=== PATIENT | female | born 1980 | race Caucasian/White ===

== ENCOUNTER → 2024-07-17 | Outpatient (CLI) | payer MEDICAID, SELFPAY ==
[2024-07-16 14:31] LABS: HCG Qualitative,Urine Negative
--- NOTE | 2024-07-17 13:15 | XR_ITS ---
Examination: MRI of brain without intravenous contrast. MRI brain with intravenous contrast. Date and time of exam:July 17, 2024 1432 hrs. Comparison August 28, 2023 Indications: Headaches beginning 2019 Indication double vision numbness and paresthesias in the extremities with balance problems Technique: Multiple axial and sagittal images of the brain to been obtained. Siemens high-resolution 1.52 Vanessa short bore scanner utilized. Sagittal sections, T1 weighted images, TR 500, TE 14, are performed. Axial sections proton-density and T2-weighted images have been obtained. Inversion recovery axial images, TR 9260, TE 111, TR 2500. Diffusion weighted images, axial sections, TR 4800, TE 128, B value 1000. Axial sections, ADC map, TR 4800, TE 128. Axial and coronal images were also obtained post 15 cc gadolinium administered intravenously. Findings:: Enlargement of the sella turcica is not present. The optic chiasm and infundibular stalk are not remarkable. There is no localized enlargement of the medulla or candice. Fourth ventricle and cerebellar tonsils appear normal in position. No subacute area of hemorrhage density is seen. Fourth ventricle is midline. Mass in the cerebellopontine angle region is not evident. 7th and 8th nerve complexes exhibit symmetry Globes are symmetrical Orbital musculature including medial lateral rectus muscles do not exhibit abnormality Increased white matter signal is again noted, scattered punctate foci increased signal in the white matter Effacement of the cortical sulcal markings is not identified. Mass effect upon the ventricular system is not identified. Diffusion-weighted images demonstrate no focus of restricted diffusion Contrast images demonstrate no abnormal enhancement Impression: No significant change in scattered punctate foci increased signal in the cerebral white matter, demyelinating disease
== END | disposition home or self-care (01) ==
LOC: SMRI 12:48
PROVIDERS: PCP Physician Assistant; Referring Provider Physician Assistant; Visit Provider Physician Assistant
DX: G37.9 Demyelinating disease of central nervous system, unspecified (principal); Z32.00 Encounter for pregnancy test, result unknown
CPT/HCPCS: 70553; 81025; A9579

== ENCOUNTER → 2025-02-22 | Outpatient (CLI) | payer MEDICAID, SELFPAY ==
[2025-02-22 16:32] LABS: HCG Qualitative,Urine Negative
--- NOTE | 2025-02-22 16:45 | XR_ITS ---
Examination: MRI of brain without intravenous contrast. MRI brain with intravenous contrast. Date and time of exam:February 22, 2025 1728 hours, comparison July 17, 2024 INDICATIONS: Blurred vision headaches beginning May 2020 numbness in the hands Technique: Multiple axial and sagittal images of the brain to been obtained. Siemens high-resolution 1.52 Vanessa short bore scanner utilized. Sagittal sections, T1 weighted images, TR 500, TE 14, are performed. Axial sections proton-density and T2-weighted images have been obtained. Inversion recovery axial images, TR 9260, TE 111, TR 2500. Diffusion weighted images, axial sections, TR 4800, TE 128, B value 1000. Axial sections, ADC map, TR 4800, TE 128. Axial and coronal images were also obtained post 16 cc gadolinium administered intravenously. Findings:: Enlargement of the sella turcica is not present. The optic chiasm and infundibular stalk are not remarkable. There is no localized enlargement of the medulla or candice. Fourth ventricle and cerebellar tonsils appear normal in position. No subacute area of hemorrhage density is seen. Fourth ventricle is midline. Mass in the cerebellopontine angle region is not evident. 7th and 8th nerve complexes exhibit symmetry Globes are symmetrical Orbital musculature including medial lateral rectus muscles do not exhibit abnormality Increased white matter signal is again noted is, scattered punctate foci increased signal in the white matter Effacement of the cortical sulcal markings is not identified. Mass effect upon the ventricular system is not identified. Diffusion-weighted images demonstrate no focus of restricted diffusion. Contrast images demonstrate no abnormal enhancement Impression: Negative for acute hemorrhage mass effect or midline shift No acute infarct Scattered punctate foci increased signal in the white matter again noted, demyelinating disease pattern
== END | disposition home or self-care (01) ==
PROVIDERS: PCP Physician Assistant
DX: R90.82 White matter disease, unspecified (principal); Z32.00 Encounter for pregnancy test, result unknown
CPT/HCPCS: 70553; 81025; A9577

== ENCOUNTER → 2025-03-30 | Outpatient (CLI) | payer MEDICAID, SELFPAY ==
--- NOTE | 2025-03-30 | XR_ITS ---
Examination: MRI right ankle without contrast Date and time of exam: March 30, 2025, 0821 hours INDICATIONS: Right ankle swelling and pain numbness beginning 2 years ago after twisting fall Technique: Multiple MRI axial and sagittal sections lumbar spine. Sagittal T2-weighted images, TR 3500, TE 118 T1 weighted transverse sections, TR 688 T8.5, T2-weighted sagittal sections T1 weighted sagittal sections TR 621, TE 30 T2 axial sections, TR 4, 190, TE 84. 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
== END | disposition home or self-care (01) ==
PROVIDERS: PCP Physician Assistant; Referring Provider Internal Medicine Rheumatology; Visit Provider Internal Medicine Rheumatology
DX: S93.491A Sprain of other ligament of right ankle, initial encounter (principal); W19.XXXA Unspecified fall, initial encounter; M76.821 Posterior tibial tendinitis, right leg
CPT/HCPCS: 73721

== ENCOUNTER 2025-06-16 00:05 | Inpatient (IN) | payer MEDICAID, SELFPAY ==
[2025-06-16] VITALS (13 sets, daily range): BP systolic 91–134; BP diastolic 60–98; PULSE 88–159; RESP 12–22; TEMP 36.2–37.3; O2SAT 97–100; BMI 30.9; BMI 31.5
--- NOTE | 2025-06-16 00:14 | XR_ITS ---
Examination: Abdomen sonogram, Limited Date and time of exam: June 16, 2025, 0216 hours INDICATIONS: Right upper abdominal pain beginning today Technique: Real-time keller scale transabdominal sonographic images of the upper abdomen obtained. Findings: Absent gallbladder Common bile duct 0.67 cm no stones Pancreas obscured by bowel gas Liver 13.3 cm no liver lesions Normal hepatopetal portal venous flow Patent IVC IMPRESSION: Absent gallbladder No common bile duct stones noted
--- NOTE | 2025-06-16 00:15 | XR_ITS ---
Examination: CT abdomen with intravenous contrast CT pelvis with intravenous contrast 2-D coronal reconstructions 2-D sagittal reconstructions Date and time of exam: June 16, 2025, 0241 hours, comparison January 15, 2023 INDICATIONS: Severe right flank and abdominal pain beginning 2 days ago. CTDI: vol (mGy) 9.93 DLP: (mGycm) 550 Technique: Multiple axial sections of the abdomen and pelvis have been obtained. 64 slice high-resolution scanner used. 3 mm axial sections have been obtained, post intravenous injection 60 cc [id number] 2-D sagittal, coronal reconstructions obtained. Low dose protocols were performed. One or more of the following dose reduction techniques were used; automated exposure control, adjustment of the mA and/or KV according to patient size, use of iterative reconstruction technique. Findings: No visualized liver or splenic lesion Absent gallbladder No pancreatic or adrenal mass No renal or ureteral calculi, no hydronephrosis Retrocecal inflamed enlarged appendix No pelvic abscess 22 mm right adnexal follicle Bladder intact IMPRESSION: Acute appendicitis
--- NOTE | 2025-06-16 00:17 | EKG_ITS ---
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
--- NOTE | 2025-06-16 00:18 | PD.EDABDPN ---
ED Abdominal Pain RME/HPI General Chief Complaint: Abdominal Pain Stated complaint: RIGHT FLANK PAIN Time seen by provider: 06/16/25 00:16 Arrival date/time: 06/16/25 00:05 RME / HPI RME / HPI narrative: See MDM for Dr. Lazo's HPI Documentation. Related Data Home Medications ?Medication ?Instructions ?Recorded ?Confirmed albuterol sulfate 90 mcg/actuation 1 inh inhalation QID PRN Wheezing 11/24/20 06/17/25 aerosol inhaler atorvastatin 20 mg tablet 20 mg PO QDAY 11/24/20 06/17/25 montelukast 10 mg tablet 10 mg PO QDAY 11/24/20 06/17/25 albuterol sulfate 2.5 mg/3 mL 2.5 mg inhalation PRN PRN Wheezing 02/20/21 06/17/25 (0.083 %) solution for nebulization aspirin 81 mg tablet 81 mg PO QDAY 02/21/21 06/17/25 amitriptyline 100 mg tablet 100 mg PO DAILY Anxiety/pain 06/16/25 06/16/25 baclofen 10 mg tablet 10 mg PO Q12H Muscle spasms 06/16/25 06/17/25 cetirizine 10 mg capsule 10 mg PO DAILY Allergies 06/16/25 06/17/25 hydroxyzine HCl 25 mg tablet 25 mg PO TID PRN Anxiety 06/16/25 06/17/25 levetiracetam 750 mg 1,500 mg PO DAILY Seizures 06/16/25 06/16/25 tablet,extended release 24 hr levothyroxine 75 mcg tablet 75 mcg PO DAILY 06/16/25 06/17/25 Allergies Allergy/AdvReac Type Severity Reaction Status Date / Time chlorpheniramine (From Allergy Hives Verified 06/16/25 00:06 Ornade) phenylpropanolamine (From Allergy Hives Verified 06/16/25 00:06 Ornade) sulfamethoxazole (From Allergy Hives Verified 06/16/25 00:06 Bactrim) trimethoprim (From Bactrim) Allergy Hives Verified 06/16/25 00:06 Review of Systems Review of Systems Systems Reviewed: All systems reviewed, normal except as documented Past Medical History Past Medical History NEUROLOGIC: Positive Epilepsy ( A CHILD NO MED) and Migraine (TAKES RX) CARDIAC: Positive Cardiac Disorders and Hypertension (TAKES MED) RESPIRATORY: Positive Asthma (HAS INHALER) MUSCULOSKELETAL: Positive Musculoskeletal Disorders and Fractures (toe) PSYCHO/SOCIAL: Positive Depression (diagnosed 01/17/2021 , no meds) and Anxiety (diagnosed 01/17/2021 , no meds) OTHER HISTORY: Positive Falls (11/10 FOR THIS PROC) and Chicken Pox Family History FAMILY HISTORY: Positive Family Cardiac Disorders (MOTHER,FATHER (HTN)), Family Cancer (MOTHER (SKIN)), Family Surgery (MOTHER,BROTHER) and Family Anesthesia Reaction (MOTHER (SEIZURES)) Surgical History SURGICAL: Positive Tonsillectomy Social History SMOKING STATUS: Never smoker ED Exam Narrative Physical exam: See [facility] for Dr. Lazo's Physical Exam Documentation. Course Quality Measures none Orders Category Date Time Status Admit to Inpatient Status Routine Admission 06/17/25 23:[address] in Observation Status Routine Admission 06/16/25 03:50 Active Bed to Chair in A.M. Routine Care 06/16/25 11:13 Ordered COVID-19 Screening Questionnaire NOW Care 06/16/25 03:[address] Screening NOW Care 06/16/25 00:15 Completed Decision to Admit X1 Care 06/16/25 03:48 Completed Ice Chips NEEDED Care 06/16/25 11:13 Completed Incentive Spirometry Treatment .q2h w/a Care 06/16/25 11:13 Completed Intake and Output Routine Care 06/16/25 11:13 Ordered NPO NOW Care 06/16/25 03:47 Completed NPO NOW Care 06/16/25 03:53 Completed Saline [Insert IV] NOW Care 06/16/25 00:13 Completed Sequential Compression Device NOW Care 06/16/25 11:13 Completed Straight [In and Out Catheter] X1 Care 06/16/25 00:13 Completed Consult to General Surgery Stat Cons 06/16/25 03:47 Ordered Diet Clear Liquid Diet 06/16/25 Lunch Completed Diet Full Liquid Diet 06/17/25 Lunch Active Diet NPO (NOW) Diet 06/16/25 03:47 Completed Diet NPO (NOW) Diet 06/16/25 03:[address] abdomen pelvis w con Stat Exams 06/16/25 00:15 Completed EKG (ED Only) Stat Exams 06/16/25 00:17 Draft US abdomen limited Stat Exams 06/16/25 00:14 Completed XR abdomen series w chest 1V Stat Exams 06/16/25 17:05 Completed Amylase Stat Lab 06/16/25 00:35 Completed Bilirubin,Direct Stat Lab 06/16/25 00:35 Completed Blood Culture (Lab) Stat Lab 06/16/25 01:36 Results CBC AM DRAW Lab 06/17/25 05:00 Completed CBC AM DRAW Lab 06/18/25 04:25 Completed CBC Stat Lab 06/16/25 00:35 Completed CBC Stat Lab 06/16/25 17:20 Completed CMP [Comprehensive Metabolic Panel] Stat Lab 06/16/25 00:35 Completed CRP [C-Reactive Protein] Stat Lab 06/16/25 01:36 Completed ESR [Sed Rate (ESR)] Stat Lab 06/16/25 01:36 Completed Electrolytes AM DRAW Lab 06/17/25 05:00 Completed Free T4 (Free Thyroxine) AM DRAW Lab 06/17/25 05:00 Completed HCG,Qualitative Serum Stat Lab 06/16/25 00:35 Completed Hemoglobin A1C [Glycohemoglobin w (eAG)] Stat Lab 06/16/25 00:35 Completed Hemoglobin and Hematocrit Routine Lab 06/17/25 11:51 Completed Lactate (Lactic Acid) Stat Lab 06/16/25 01:36 Completed Lipase Stat Lab 06/16/25 00:35 Completed Magnesium Stat Lab 06/16/25 00:35 Completed Procalcitonin Stat Lab 06/16/25 01:36 Completed TSH [Thyroid Stimulating Hormone] Stat Lab 06/16/25 00:35 Completed UA, C/S IF [Urinalysis, C/S if Indicated] Stat Lab 06/16/25 02:30 Completed Acetaminophen Ivpb [Ofirmev Inj] 100 ml Med 06/16/25 07:59 Discontinued IV .STK-MED Acetaminophen Tab [Tylenol Tab] Med 06/16/25 11:13 Discontinued 650 mg PO Q6HR PRN Amitriptyline HCl [Elavil] Med 06/17/25 09:00 Discontinued 100 mg PO DAILY Baclofen [Lioresal] Med 06/16/25 18:45 Discontinued 10 mg PO Q12H Bupivacaine Mpf/Epi 0.5% [Sensorcaine-Mpf Inj 0.5% w/ Med 06/16/25 07:29 Discontinued Epi] 30 ml .ROUTE .STK-MED ONE Esmolol HCl [Brevibloc Inj] Med 06/16/25 08:15 Discontinued 100 mg .ROUTE .STK-MED ONE Gabapentin Med 06/17/25 09:30 Discontinued 200 mg PO TID HYDROmorphone INJ [Dilaudid Inj] Med 06/16/25 08:14 Discontinued 0.4 mg IVP Q5M PRN HYDROmorphone INJ [Dilaudid Inj] Med 06/16/25 17:08 Discontinued 1 mg IVP X1 ONE HYDROmorphone INJ [Dilaudid Inj] Med 06/17/25 18:33 Discontinued 1 mg IVP X1 ONE HYDROmorphone INJ [Dilaudid Inj] Med 06/17/25 18:34 Discontinued 1 mg IVP X1 ONE HYDROmorphone INJ [Dilaudid Inj] Med 06/16/25 00:13 Discontinued 2 mg IVP X1 ONE Ketorolac Inj [Toradol Inj] Med 06/16/25 16:42 Discontinued 30 mg IVP Q6HR PRN Ketorolac Inj [Toradol Inj] Med 06/16/25 00:13 Discontinued 30 mg IVP X1 ONE LORazepam [Ativan Inj] Med 06/16/25 17:38 Discontinued 1 mg IVP X1 ONE LORazepam [Ativan Inj] Med 06/17/25 08:56 Discontinued 1 mg IVP X1 ONE LORazepam [Ativan Inj] Med 06/16/25 01:23 Discontinued 2 mg IVP X1 ONE Levothyroxine Sodium [Synthroid] Med 06/17/25 06:00 Discontinued 75 mcg PO ACBR Midazolam Inj [Versed Inj] Med 06/16/25 07:58 Discontinued 2 mg .ROUTE .STK-MED ONE Morphine* Inj Med 06/16/25 08:14 Discontinued 3 mg IV Q5M PRN Morphine* Inj Med 06/16/25 03:52 Discontinued 4 mg IVP Q4HR PRN Morphine* Inj Med 06/17/25 08:38 Discontinued 4 mg IVP Q4HR PRN Ondansetron Inj [Zofran Inj] Med 06/16/25 03:52 Discontinued 4 mg IVP Q4H PRN Ondansetron Inj [Zofran Inj] Med 06/16/25 00:13 Discontinued 4 mg IVP X1 ONE Ondansetron Inj [Zofran Inj] Med 06/16/25 08:14 Discontinued 4 mg IVP X1 ONE Pantoprazole Inj [Protonix Inj] Med 06/17/25 18:45 Discontinued 40 mg IVP QDAY Piper/Tazo 3.375 gm Premix [Zosyn] Med 06/16/25 11:13 Discontinued 3.375 gm in 50 ml IV Q8HR Potassium Chloride [K-Dur] Med 06/17/25 07:48 Discontinued 40 meq PO X1 ONE Propofol Inj [Diprivan Inj] Med 06/16/25 07:58 Discontinued 200 mg IV .STK-MED ONE Ringers Lactated 1000 ml [Lactated Ringers] 1,000 ml Med 06/16/25 01:25 Discontinued IV 1,000 mls/hr Sodium Chloride 0.9% 1000 ml [Ns] 1,000 ml Med 06/16/25 00:13 Discontinued IV 999 mls/hr Sodium Chloride 0.9% 1000 ml [Ns] 1,000 ml Med 06/16/25 03:53 Discontinued IV Q10H Sodium Chloride 0.9% 1000 ml [Ns] 1,000 ml Med 06/17/25 20:00 Discontinued IV Q10H Sugammadex Inj [Bridion Inj] Med 06/16/25 07:59 Discontinued 200 mg .ROUTE .STK-MED ONE cefTRIAXone/D5w 1gm IV premix [Rocephin/D5w 1gm IV Med 06/16/25 03:38 Discontinued premix] 1 gm in 50 ml IV X1 fentaNYL INJ [Sublimaze Inj] Med 06/16/25 07:58 Discontinued 100 mcg .ROUTE .STK-MED ONE fentaNYL INJ [Sublimaze Inj] Med 06/16/25 08:14 Discontinued 25 mcg IVP Q5M PRN hydrOXYzine HCL [Atarax] Med 06/16/25 18:32 Discontinued 25 mg PO QID PRN LANEY Agitation levetiracetam Med 06/17/25 09:00 Discontinued DOSE mg PO DAILY metroNIDAZOLE/NS 500 MG IVPB [Flagyl 500 mg IV] Med 06/16/25 03:38 Discontinued 500 mg in 100 ml IV X1 Code Status Routine Oth 06/16/25 03:52 Completed Oxygen Delivery PRN RT 06/16/25 08:14 Completed Transfer Order Routine Transfer 06/16/25 09:45 Completed Vital Signs Vital signs: Vital Signs Temperature 98.3 F 06/16/25 00:15 Pulse Rate 159 H 06/16/25 00:15 Respiratory Rate 20 06/16/25 00:15 Blood Pressure 101/62 06/16/25 00:15 Pulse Oximetry (%) 98 06/16/25 00:15 Oxygen Delivery Method Room Air 06/16/25 00:15 Abdominal Pain MDM MDM Narrative MDM Narrative:: This section includes all my notes and documentations, including HPI, PE, and ED course. Sharath Lazo MD HPI: 44 y/o female with Hx of HTN and Anxiety presents with right-sided abdominal pain for about 24 hours. No other complaints. ROS: All negative except as documented in HPI. Physical Exam: General: Alert and oriented. In obvious pain. Eyes: Conjunctivae and lids clear. ENT: No nasal congestion. Neck: Supple. Heart: Tachycardia with regular rhythm. Lungs: No respiratory distress. Good air movement. No rhonchi, wheezing, rales. Abdomen: Soft with RLQ tenderness. Normal bowel sounds. No distension. No rebound or guarding. Back: No CVA tenderness. Skin: Warm and dry. Neuro: Alert and oriented X 3. I reviewed all diagnostic test results: My interpretation of the EKG is: Sinus tachycardia (126 bpm) with nonspecific ST-T changes. My review of the abdominal US report is NAD. My review of the Abdomen/Pelvis CT report is appendicitis. Blood/urine tests remarkable for WBC 20. At this point, diagnoses include: Acute Appendicitis Treatment here included: IVF Zofran 4 mg IV Toradol 30 mg IV Dilaudid 2 mg IV No significant improvement noted Ativan 2 mg IV Significant improvement noted Rocephin 1 G IV Flagyl 500 mg IV I discussed the case with Dr. Nichole. About the presentation and exam and diagnostics and treatments here. And need of further care in the hospital. Will accept the patient. Sharath Lazo MD Patient data External records reviewed:: [facility] previous records (No prior ED records available for review.) Clinical information provided by:: patient Social determinants that could affect healthcare access:: none Patient has the following chronic illnesses:: Epilepsy, Migraine, Hypertension, Asthma, Depression, and Anxiety How is presenting disease/condition affected by chronic disease/condition?: exacerbated by Evaluation data The following diagnostics were reviewed and interpreted by me:: EKG tracing(s) (My interpretation of the EKG is: Sinus tachycardia (126 bpm) with nonspecific ST-T changes. Sharath Lazo MD) Lab and/or radiology exams considered but not ordered:: None Interpretation Summary: I reviewed all diagnostic test results: My interpretation of the EKG is: Sinus tachycardia (126 bpm) with nonspecific ST-T changes. My review of the abdominal US report is NAD. My review of the Abdomen/Pelvis CT report is appendicitis. Blood/urine tests remarkable for WBC 20. Medications / Prescriptions Medications or Prescriptions considered but not ordered:: None Medication administrations:: Medication Administration History Discontinued Medications Acetaminophen (Acetaminophen 325 Mg Tablet) 650 mg PO Q6HR PRN PRN Reason: [id number] Stop: 07/16/25 11:12 Amitriptyline HCl (Amitriptyline Hcl 25 Mg Tablet) 100 mg PO DAILY [facility] Stop: 07/17/25 08:59 Last Admin: 06/19/25 10:31 Dose: 100 mg Documented By: Admin: 06/18/25 10:15 Dose: Not Given Documented By: KAEL Non-Admin Reason: pt unable to tolerate, vomiting Admin: 06/17/25 08:30 Dose: 100 mg Documented By: MIKEY Baclofen (Baclofen 10 Mg Tablet) 10 mg PO Q12H [facility] Stop: 07/16/25 18:44 Last Admin: 06/19/25 05:49 Dose: Not Given Documented By: VICKY Non-Admin Reason: Patient Refused Admin: 06/18/25 17:57 Dose: Not Given Documented By: KAEL Non-Admin Reason: Patient Refused Admin: 06/18/25 06:03 Dose: 10 mg Documented By: Admin: 06/17/25 17:49 Dose: 10 mg Documented By: Admin: 06/17/25 05:45 Dose: 10 mg Documented By: Admin: 06/16/25 19:24 Dose: 10 mg Documented By: OLEKSANDR Bupivacaine HCl/Epinephrine Bitart (Bupivacaine Mpf/Epi 0.5% 30 Ml Vial 1:200,000) Confirm Administered Dose 30 ml .ROUTE .STK-MED ONE Stop: 06/16/25 07:30 Levetiracetam Er 750 (Mg) 0 ea PO BID [facility] Stop: 07/18/25 08:59 Last Admin: 06/19/25 10:31 Dose: 1 tablet Documented By: Admin: 06/18/25 20:06 Dose: Not Given Documented By: VICKY Non-Admin Reason: Patient Refused Admin: 06/18/25 10:14 Dose: Not Given Documented By: KAEL Non-Admin Reason: pt unable to tolerate, vomiting Esmolol HCl (Esmolol Inj 10 Mg/Ml Vial 10 Ml) Confirm Administered Dose 100 mg .ROUTE .STK-MED ONE Stop: 06/16/25 08:16 Fentanyl Citrate (Fentanyl Cit Inj 50 Mcg/Ml Amp 2ml) Confirm Administered Dose 100 mcg .ROUTE .STK-MED ONE Stop: 06/16/25 07:59 Fentanyl Citrate (Fentanyl Cit Inj 50 Mcg/Ml Amp 2ml) 25 mcg IVP Q5M PRN PRN Reason: PAIN SCALE 1-3 (mild Stop: 06/16/25 10:15 Gabapentin (Gabapentin 100 Mg Capsule) 200 mg PO TID [facility] Stop: 07/17/25 09:29 Last Admin: 06/19/25 05:49 Dose: 200 mg Documented By: Admin: 06/18/25 21:12 Dose: Not Given Documented By: VICKY Non-Admin Reason: Patient Refused Admin: 06/18/25 15:22 Dose: 200 mg Documented By: Admin: 06/18/25 06:03 Dose: 200 mg Documented By: Admin: 06/17/25 21:31 Dose: 200 mg Documented By: Admin: 06/17/25 13:40 Dose: 200 mg Documented By: Admin: 06/17/25 11:18 Dose: 200 mg Documented By: MIKEY Hydromorphone HCl (Hydromorphone Inj 2 Mg/Ml Vial) 2 mg IVP X1 ONE Stop: 06/16/25 00:14 Last Admin: 06/16/25 00:39 Dose: 2 mg Documented By: NATASHA Hydromorphone HCl (Hydromorphone Inj 2 Mg/Ml Vial) 0.4 mg IVP Q5M PRN PRN Reason: PAIN SCALE 7-10 (Severe Stop: 06/16/25 10:15 Last Admin: 06/16/25 10:39 Dose: 0.4 mg Documented By: NISHANT Comments: Admin: 06/16/25 10:23 Dose: 0.4 mg Documented By: NISHANT Hydromorphone HCl (Hydromorphone Inj 2 Mg/Ml Vial) 1 mg IVP X1 ONE Stop: 06/16/25 17:09 Last Admin: 06/16/25 17:22 Dose: 1 mg Documented By: MIKEY Hydromorphone HCl (Hydromorphone Inj 2 Mg/Ml Vial) 1 mg IVP X1 ONE Stop: 06/17/25 18:35 Last Admin: 06/17/25 18:42 Dose: 1 mg Documented By: MIKEY Hydromorphone HCl (Hydromorphone Inj 2 Mg/Ml Vial) 1 mg IVP X1 ONE Stop: 06/17/25 18:34 Last Admin: 06/17/25 18:41 Dose: Not Given Documented By: MIKEY Non-Admin Reason: Duplicate Medication on eMAR Hydroxyzine HCl (Hydroxyzine Hcl 25 Mg Tablet) 25 mg PO QID PRN PRN Reason: AGITATION Stop: 07/16/25 20:59 Last Admin: 06/17/25 08:36 Dose: 25 mg Documented By: MIKEY Sodium Chloride (Ns) 1,000 mls @ 999 mls/hr IV .Q1H1M ONE Stop: 06/16/25 01:13 Last Infusion: 06/16/25 01:44 Dose: Infused Documented By: Admin: 06/16/25 00:43 Dose: 999 mls/hr Documented By: NATASHA Lactated Ringer's (Lactated Ringers) 1,000 mls @ 1,000 mls/hr IV .Q1H ONE Stop: 06/16/25 02:24 Last Admin: 06/16/25 01:43 Dose: 1,000 mls/hr Documented By: CONSTANCE Ceftriaxone Sodium/Dextrose (Rocephin/D5w 1gm Iv Premix) 1 gm in 50 mls @ 100 mls/hr IV X1 ONE Stop: 06/16/25 04:07 Last Admin: 06/16/25 04:51 Dose: 100 mls/hr Documented By: NATASHA Metronidazole (Flagyl 500 Mg Iv) 500 mg in 100 mls @ 100 mls/hr IV X1 ONE Stop: 06/16/25 04:37 Last Admin: 06/16/25 03:56 Dose: 100 mls/hr Documented By: AU Sodium Chloride (Ns) 1,000 mls @ 100 mls/hr IV Q10H [facility] Stop: 07/16/25 03:52 Last Admin: 06/17/25 20:14 Dose: Not Given Documented By: CV Non-Admin Reason: Discontinued Admin: 06/17/25 08:37 Dose: 100 mls/hr Documented By: Infusion: 06/17/25 07:00 Dose: Infused Documented By: Admin: 06/16/25 21:00 Dose: 100 mls/hr Documented By: Infusion: 06/16/25 14:46 Dose: Infused Documented By: Admin: 06/16/25 12:51 Dose: Not Given Documented By: SG Non-Admin Reason: Wrong Time Admin: 06/16/25 04:46 Dose: 100 mls/hr Documented By: NATASHA Acetaminophen (Ofirmev Inj) Confirm Administered Dose 100 mls @ ud IV .STK-MED ONE Stop: 06/16/25 08:00 Piperacillin/Tazobactam/Dextrose (Zosyn) 3.375 gm in 50 mls @ 100 mls/hr IV Q8HR [facility]; Protocol Stop: 06/23/25 11:12 Last Admin: 06/19/25 05:46 Dose: 100 mls/hr Documented By: Infusion: 06/18/25 21:46 Dose: Infused Documented By: Admin: 06/18/25 21:16 Dose: 100 mls/hr Documented By: Infusion: 06/18/25 15:52 Dose: Infused Documented By: Admin: 06/18/25 15:22 Dose: 100 mls/hr Documented By: Infusion: 06/18/25 06:33 Dose: Infused Documented By: Admin: 06/18/25 06:03 Dose: 100 mls/hr Documented By: Infusion: 06/17/25 22:01 Dose: Infused Documented By: Admin: 06/17/25 21:31 Dose: 100 mls/hr Documented By: Infusion: 06/17/25 14:09 Dose: Infused Documented By: Admin: 06/17/25 13:39 Dose: 100 mls/hr Documented By: Infusion: 06/17/25 06:14 Dose: Infused Documented By: Admin: 06/17/25 05:44 Dose: 100 mls/hr Documented By: Infusion: 06/16/25 21:35 Dose: Infused Documented By: Admin: 06/16/25 21:05 Dose: 100 mls/hr Documented By: Admin: 06/16/25 17:38 Dose: Not Given Documented By: MIKEY Non-Admin Reason: Duplicate. Held per Dr Hernandez Infusion: 06/16/25 13:03 Dose: Infused Documented By: Admin: 06/16/25 12:33 Dose: 100 mls/hr Documented By: RIRI Sodium Chloride (Ns) 1,000 mls @ 50 mls/hr IV Q10H [facility] Stop: 07/17/25 19:59 Last Admin: 06/18/25 17:48 Dose: 50 mls/hr Documented By: Infusion: 06/18/25 17:48 Dose: Infused Documented By: Admin: 06/18/25 06:19 Dose: 50 mls/hr Documented By: Admin: 06/17/25 20:16 Dose: Not Given Documented By: CV Non-Admin Reason: onging fluid, dec rate Acetaminophen (Ofirmev Inj) 1,000 mg in 100 mls @ 250 mls/hr IV X1 ONE Stop: 06/19/25 10:25 Last Admin: 06/19/25 10:30 Dose: 250 mls/hr Documented By: SEAN Ketorolac Tromethamine (Ketorolac Inj 30 Mg/Ml Vial) 30 mg IVP X1 ONE Stop: 06/16/25 00:14 Last Admin: 06/16/25 00:39 Dose: 30 mg Documented By: NATASHA Ketorolac Tromethamine (Ketorolac Inj 30 Mg/Ml Vial) 30 mg IVP Q6HR PRN PRN Reason: PAIN SCALE 4-6 (Moderate Stop: 06/21/25 16:41 Last Admin: 06/18/25 17:47 Dose: 30 mg Documented By: Admin: 06/18/25 06:02 Dose: 30 mg Documented By: Admin: 06/17/25 20:04 Dose: 30 mg Documented By: Admin: 06/17/25 13:41 Dose: 30 mg Documented By: Admin: 06/16/25 16:51 Dose: 30 mg Documented By: MIKEY Levothyroxine Sodium (Levothyroxine Sodium 25 Mcg Tablet) 75 mcg PO ACBR [facility] Stop: 07/17/25 05:59 Last Admin: 06/19/25 05:49 Dose: Not Given Documented By: VICKY Non-Admin Reason: Patient Refused Admin: 06/18/25 06:03 Dose: 75 mcg Documented By: Admin: 06/17/25 05:44 Dose: 75 mcg Documented By: TAI Lorazepam (Lorazepam 2 Mg/Ml Vial) 2 mg IVP X1 ONE Stop: 06/16/25 01:24 Last Admin: 06/16/25 01:39 Dose: 2 mg Documented By: CONSTANCE Lorazepam (Lorazepam 2 Mg/Ml Vial) 1 mg IVP X1 ONE Stop: 06/16/25 17:39 Last Admin: 06/16/25 17:53 Dose: 1 mg Documented By: MIKEY Lorazepam (Lorazepam 2 Mg/Ml Vial) 1 mg IVP X1 ONE Stop: 06/17/25 08:57 Last Admin: 06/17/25 09:09 Dose: 1 mg Documented By: MIKEY Metoclopramide HCl (Metoclopramide Inj 5 Mg/Ml Vial 2 Ml) 10 mg IVP X1 ONE; Protocol Stop: 06/18/25 08:59 Last Admin: 06/18/25 10:11 Dose: 10 mg Documented By: KAEL Midazolam HCl (Midazolam Inj 1 Mg/Ml Vial 2 Ml) Confirm Administered Dose 2 mg .ROUTE .STK-MED ONE Stop: 06/16/25 07:59 Morphine Sulfate (Morphine Sulf Inj 4 Mg/Ml Vial) 4 mg IVP Q4HR PRN PRN Reason: PAIN SCALE 4-10(Mod-Sev Stop: 06/21/25 03:51 Last Admin: 06/17/25 08:30 Dose: 4 mg Documented By: Admin: 06/16/25 22:18 Dose: 4 mg Documented By: Admin: 06/16/25 15:59 Dose: 4 mg Documented By: Admin: 06/16/25 05:35 Dose: 4 mg Documented By: MARCELLA Morphine Sulfate (Morphine Sulf Inj 4 Mg/Ml Vial) 3 mg IV Q5M PRN PRN Reason: PAIN SCALE 4-6 (Moderate Stop: 06/16/25 10:15 Morphine Sulfate (Morphine Sulf Inj 4 Mg/Ml Vial) 4 mg IVP Q4HR PRN PRN Reason: PAIN SCALE 7-10(Mod-Sev Stop: 06/21/25 03:51 Last Admin: 06/18/25 08:28 Dose: 4 mg Documented By: KAEL Morphine Sulfate (Morphine Sulf Inj 4 Mg/Ml Vial) 2 mg IVP X1 ONE Stop: 06/18/25 08:58 Last Admin: 06/18/25 10:11 Dose: 2 mg Documented By: KAEL Non-Formulary Medication (Levetiracetam) mg PO DAILY [facility] Stop: 07/17/25 08:59 Non-Formulary Medication (Levetiracetam) 1,500 mg PO DAILY [facility] Stop: 07/18/25 08:59 Ondansetron HCl (Ondansetron Inj 2 Mg/Ml Inj 2 Ml) 4 mg IVP X1 ONE; Protocol Stop: 06/16/25 00:14 Last Admin: 06/16/25 00:39 Dose: 4 mg Documented By: NATASHA Ondansetron HCl (Ondansetron Inj 2 Mg/Ml Inj 2 Ml) 4 mg IVP Q4H PRN; Protocol PRN Reason: NAUSEA OR VOMITING Stop: 07/16/25 03:51 Last Admin: 06/18/25 17:47 Dose: 4 mg Documented By: Admin: 06/18/25 08:28 Dose: 4 mg Documented By: Admin: 06/17/25 20:05 Dose: 4 mg Documented By: Admin: 06/16/25 16:46 Dose: 4 mg Documented By: Admin: 06/16/25 12:37 Dose: 4 mg Documented By: RIRI Ondansetron HCl (Ondansetron Inj 2 Mg/Ml Inj 2 Ml) 4 mg IVP X1 ONE Stop: 06/16/25 08:15 Last Admin: 06/16/25 10:49 Dose: 4 mg Documented By: NISHANT Pantoprazole Sodium (Pantoprazole Inj 40 Mg Vial) 40 mg IVP QDAY [facility] Stop: 07/17/25 18:44 Last Admin: 06/19/25 10:30 Dose: 40 mg Documented By: Admin: 06/18/25 08:28 Dose: 40 mg Documented By: Admin: 06/17/25 18:42 Dose: 40 mg Documented By: MIKEY Potassium Chloride (Potassium Chloride 20 Meq Tabcr) 40 meq PO X1 ONE Stop: 06/17/25 07:49 Last Admin: 06/17/25 08:36 Dose: 40 meq Documented By: [email or web address] Propofol (Propofol Inj 10 Mg/Ml Vial 20 Ml) Confirm Administered Dose 200 mg IV .STK-MED ONE Stop: 06/16/25 07:59 Sugammadex Sodium (Sugammadex Inj 100 Mg/Ml 2ml Vial) Confirm Administered Dose 200 mg .ROUTE .STK-MED ONE Stop: 06/16/25 08:00 Treatment here included: IVF Zofran 4 mg IV Toradol 30 mg IV Dilaudid 2 mg IV No significant improvement noted Ativan 2 mg IV Significant improvement noted Rocephin 1 G IV Flagyl 500 mg IV Consultations Consultation(s) initiated? (list below): Yes Consultation #1 (Physician, Specialty, Details): I discussed the case with Dr. Nichole. About the presentation and exam and diagnostics and treatments here. And need of further care in the hospital. Will accept the patient. Time: 03:44 Diagnosis Differential diagnosis abdominal pain: acute appendicitis, calculus of kidney, constipation, diverticulitis, gastroenteritis, pancreatitis and small bowel obstruction Most likely diagnosis given after review of the tests above:: Acute Appendicitis Admission Indicated Admission indicated?: indicated Explain why admission is indicated or not indicated:: Acute Appendicitis Admission Request Was there a request for admission?: Yes Admission Attestation Admission request attestation: I discussed the case with Dr. Nichole. About the presentation and exam and diagnostics and treatments here. And need of further care in the hospital. Will accept the patient. Disposition Plan Disposition Plan: Admit Discharge Plan Plan Patient Disposition: Admit Acute Care w/in Hospital Problem List Clinical Impression: Acute appendicitis
[2025-06-16] MEDS: KETOROLAC INJ 30 MG/ML VIAL IVP ×2 (00:39→16:51)
[2025-06-16] MEDS: ONDANSETRON INJ 2 MG/ML INJ 2 ML 4 MG IVP ×4 (00:39→16:46)
[2025-06-16] MEDS: HYDROmorphone INJ 2 MG/ML VIAL IVP (00:39)
[2025-06-16] MEDS: SODIUM CHLORIDE 0.9% 1000 ML 1,000 ML 999 ML IV (00:43)
[2025-06-16 00:46] LABS: Basophils # (Auto) 0.0 Thou/mm3 (0.0-0.2); Basophils % (Auto) 0 % (0-2.5); Eosinophils # (Auto) 0.0 Thou/mm3 (0.0-0.5); Eosinophils % (Auto) 0 % (0-10); Hematocrit 39.8 % (36.0-46.0); Hemoglobin 13.4 g/dL (12.0-16.0); Immature Granulocytes Auto 0.12 Thou/mm3 (0.00-0.00); Lymphocytes # (Auto) 0.7 Thou/mm3 (1.0-4.8); Lymphocytes % (Auto) 4 % (10-50); Mean Corpuscular HGB Conc 33.7 g/dl (31.0-37.0); Mean Corpuscular Hemoglobin 29.0 pg (25.0-35.0); Mean Corpuscular Volume 86 fL (80-100); Monocytes # (Auto) 1.6 Thou/mm3 (0.0-0.8); Monocytes % (Auto) 8 % (0-12); Neutrophils # (Auto) 17.5 Thou/mm3 (1.8-7.7); Neutrophils % (Auto) 88 % (37-80); Nucleated Red Blood Cell # 0.00 Thou/mm3 (0.00-0.00); Nucleated Red Blood Cell % 0 /100 WBC (0); Platelet Count 242 Thou/mm3 (140-440); RDW Standard Deviation 41.2 fL (36.4-46.3); Red Blood Count 4.62 Miln/mm3 (4.00-5.20); White Blood Count 20.0 Thou/mm3 (3.6-11.0)
[2025-06-16 01:08] LABS: Glucose Estimated Average 100 mg/dL (80-131); Hemoglobin A1C 5.1 % Hgb (4.8-6.0)
[2025-06-16 01:09] LABS: Alanine Aminotransferase 11 U/L (10-49); Albumin, Serum 4.7 gm/dL (3.5-5.0); Albumin/Globulin Ratio 1.5 (1.2-2.2); Alkaline Phosphatase 84 U/L (46-116); Amylase 46 U/L (30-118); Anion Gap 14 (7-16); Aspartate Amino Transferase 22 U/L (0-34); BUN/Creatinine Ratio 9 Ratio (12-20); Bilirubin,Direct 0.1 mg/dL (0.0-0.3); Bilirubin,Total 0.5 mg/dL (0.3-1.2); Blood Urea Nitrogen 7 mg/dL (9-23); Calcium 9.9 mg/dL (8.3-10.6); Calcium (Corrected) 9.9 mg/dL (8.5-10.1); Carbon Dioxide 20.2 mMol/L (20.0-31.0); Chloride 104 mMol/L (98-107); Creatinine (Component) 0.8 mg/dL (0.6-1.3); Estimated Creatinine Clearance 94.7 mL/min (>60); Globulin 3.1 gm/dL (2.3-3.5); Glucose 140 mg/dL (74-106); HCG,Qualitative Serum Negative; Lipase 28 U/L (12-53); Magnesium 1.7 mg/dL (1.6-2.6); Osmolality,Calculated 275 (275-295); Potassium 3.6 mMol/L (3.4-5.1); Sodium 138 mMol/L (136-145); Thyroid Stimulating Hormone 0.50 uIU/mL (0.55-4.78); Total Protein 7.8 gm/dL (5.7-8.2); eGFR > 60 See Note
[2025-06-16] MEDS: LORazepam 2 MG/ML VIAL IVP (01:39)
[2025-06-16] MEDS: RINGERS LACTATED 1000 ML 1,000 ML IV (01:43)
[2025-06-16 01:45] LABS: Lactate (Lactic Acid) 0.9 mMol/L (0.4-2.0)
[2025-06-16 01:51] LABS: Sed Rate (ESR) 20 mm/hr (0-20)
[2025-06-16 02:25] LABS: C-Reactive Protein 1.6 mg/dL (0.0-0.9); Procalcitonin < 0.04 ng/ml (0.0-0.49)
--- NOTE | 2025-06-16 03:04 | PRELIM_ITS ---
Ultrasound Abdomen. June 16, 2025 at 0216 hours Clinical history: Assess for biliary tree and liver. Technique: Grayscale and color flow images of the abdomen are provided. Hepatic and portal veins were also imaged with color flow images. Comparison: No prior study is available for comparison. Findings: Status post cholecystectomy. Common bile duct is 7 mm in diameter. No choledocholithiasis identified. Pancreas is obscured by bowel. Liver is 13.3 cm long. No focal hepatic lesion. No ascites. Main portal vein is antegrade. Inferior vena cava is patent. Impression: No intra or extrahepatic biliary duct dilatation. Postcholecystectomy. Report Electronically Signed By: Tray Fitch 06/16/2025 3:03:45 AM [EST]
[2025-06-16 03:31] LABS: Collection Type, Urine Clean Catch
--- NOTE | 2025-06-16 03:41 | PRELIM_ITS ---
CT abdomen and pelvis with intravenous contrast (axial images with coronal and sagittal reconstructions) Clinical history: Severe right sided abdominal pain Findings: The lung bases are clear. The liver, spleen, adrenal glands and pancreas unremarkable. Status post cholecystectomy. The kidneys are normal. The appendix is prominently thickened, 1.8 cm in diameter, with prominent adjacent fat stranding, image 122. No perforation or fluid collection. The urinary bladder is normal. There is no adnexal cyst or mass. A 2 cm right adnexal follicle. Bowel caliber is normal. The abdominal wall is unremarkable. No acute osseous process. Impression: Acute appendicitis. Recommend emergent surgical consultation. Discussion Details: Results verbally communicated to : Dr Lazo at 03:37 AM 06/16/2025 Report Electronically Signed By: Tray Fitch 06/16/2025 3:40:44 AM [EST]
[2025-06-16 03:42] LABS: Bacteria,Urine Rare; Bilirubin,Urine Negative (Negative); Blood,Urine Negative (Negative); Clarity,Urine Clear (Clear/Hazy); Color,Urine Yellow (Lt Yel-Yel); Culture Indicated,Urine Not Indicated; Glucose, Urine Negative (Negative); Ketones,Urine 2+ (Negative); Leukocyte Esterase,Urine Negative (Negative); Nitrite,Urine Negative (Negative); PH,Urine 8.5 (5.0-7.0); Protein,Urine 1+ (Neg - Trace); RBC,Urine 2 /hpf (0-3); Specific Gravity,Urine 1.024 (1.001-1.035); Squamous Epithelial Cell,Urine 4 /hpf (0-5); Urobilinogen,Urine Negative mg/dL (0.0-1.0); WBC,Urine 1 /hpf (0-5)
[2025-06-16] MEDS: metroNIDAZOLE/NS 500 MG IVPB 500 MG/100 ML BAG 100 MG IV (03:56)
[2025-06-16] MEDS: SODIUM CHLORIDE 0.9% 1000 ML 1,000 ML 100 ML IV ×2 (04:46→21:00)
[2025-06-16] MEDS: cefTRIAXone/D5w 1gm IV premix 1 GM/50 ML BAG IV (04:51)
[2025-06-16] MEDS: MORPHINE SULF INJ 4 MG/ML VIAL IVP ×3 (05:35→22:18)
--- NOTE | 2025-06-16 07:29 | PD.SURHP ---
HPI Date of Admission 06/16/25 03:49 Chief Complaint Chief Complaint: Patient is admitted with a diagnosis of acute appendicitis HPI History of present illness revealed that the patient was in her usual health until 3:00 yesterday morning when she had some pain in the abdomen. She vomited many times. Had a bowel movement. No diarrhea. The pain in the abdomen was very severe especially after lunch and she could not eat. She came to the emergency room and was found to have acute appendicitis. Her past medical history is very complicated and she has numerous medical problems. She has a constant migraine and then history of seizures and fibromyalgia and she is being evaluated in [facility] for some neurological disorder. Patient also is losing the balance and is walking with a cane because of the frequent falls that happen spontaneously. He also has memory loss intermittently. Past surgery consist of laparoscopic cholecystectomy and some shoulder surgery. She is on numerous medications that is not listed here Past Medical History Past Medical History NEUROLOGIC: Positive Epilepsy and Migraine; Negative Neurological Disorders or Seizures CARDIAC: Positive Cardiac Disorders and Hypertension; Negative Congestive Heart Failure, Edema, Cellulitis or Varicose Veins RESPIRATORY: Positive Asthma; Negative Chronic Obstructive Pulmonary Disease (COPD) GASTROINTESTINAL: Negative Gastrointestinal Disorders or Hepatitis GENITOURINARY: Negative Genitourinary Disorders or Renal Disease MUSCULOSKELETAL: Positive Musculoskeletal Disorders and Fractures ENDOCRINE: Negative Endocrine Disorders, Diabetes Mellitus Type 1 or Diabetes Mellitus Type 2 HEMATOLOGIC: Negative Blood Disorders or Sickle Cell Disease PSYCHO/SOCIAL: Positive Depression and Anxiety OTHER HISTORY: Positive Falls and Chicken Pox; Negative Hospitalization, Autoimmune Disease, Shingles, Blood Transfusions, Anesthesia Reactions, Chemotherapy, Radiation Therapy, MRSA, Measles, Mumps or Cancer Family History FAMILY HISTORY: Positive Family Respiratory Disorders (MOTHER (ASTHMA)), Family Cardiac Disorders, Family Cancer, Family Surgery and Family Anesthesia Reaction; Negative Family Psychiatric Problems or Family Gastrointestinal Problems Surgical History SURGICAL: Positive Tonsillectomy; Negative Pacemaker Social History SMOKING STATUS: Never smoker Meds Home Medications and Allergies Home Medications ?Medication ?Instructions ?Recorded ?Confirmed ?Type albuterol sulfate 90 mcg/actuation 1 inh inhalation QID PRN Wheezing 11/24/20 02/20/21 History aerosol inhaler atorvastatin 20 mg tablet 20 mg PO QDAY 11/24/20 02/20/21 History montelukast 10 mg tablet 10 mg PO QDAY 11/24/20 02/20/21 History albuterol sulfate 2.5 mg/3 mL 2.5 mg inhalation PRN PRN Wheezing 02/20/21 02/20/21 History (0.083 %) solution for nebulization aspirin 81 mg tablet 81 mg PO QDAY 02/21/21 02/21/21 History Allergies Allergy/AdvReac Type Severity Reaction Status Date / Time chlorpheniramine (From Allergy Hives Verified 06/16/25 00:06 Ornade) phenylpropanolamine (From Allergy Hives Verified 06/16/25 00:06 Ornade) sulfamethoxazole (From Allergy Hives Verified 06/16/25 00:06 Bactrim) trimethoprim (From Bactrim) Allergy Hives Verified 06/16/25 00:06 Exam Vital Signs Temp Pulse Resp BP Pulse Ox O2 Del Method 97.6 F 103 H 18 106/76 97 Room Air 06/16/25 05:40 06/16/25 05:40 06/16/25 05:40 06/16/25 05:40 06/16/25 05:40 06/16/25 05:40 Narrative Exam Physical examination revealed slightly obese white female who is 5 feet 4 inches tall weighing 183 pounds with BMI of 31.5 vital signs are normal other than tachycardia of 103 Constitutional Constitutional: severe distress Routine Abdominal Exam Comments: Abdomen showed a definite tenderness over the right flank about the McBurney's point. The rest of the abdomen is less tender. Bowel sounds are hypoactive Routine Rectal Exam Comments: Deferred Routine Exam Comments: Deferred Routine Extremities Exam Comments: Within normal limits Routine Neurological Exam Comments: Not done because of the patient's acute surgical condition Results Results: Laboratory Laboratory Narrative: Patient's laboratory workup shows WBC of 20,000 with a shift to the left Results: Imaging Imaging narrative: CT scan showed acute appendicitis Assessment & Plan Additional Assessment Additional comments: Impression: Acute appendicitis Plan Plan: I advised the patient to undergo appendectomy laparoscopically. The procedure was explained to her in detail including potential complications like bowel injury bleeding and the need for open surgery etc. Patient also was told that she may end up having an open appendectomy in case the laparoscopic approach fails. She is agreeable. Quality Measures Quality Measures none
--- NOTE | 2025-06-16 09:52 | PD.SUROPNT ---
Date of Procedure 06/16/25 Pre Op Diagnosis Acute retrocecal appendicitis Post Op Diagnosis Same Procedure Laparoscopic appendectomy Findings Patient is found to have an appendix that is completely hidden behind the cecum in the retrocecal position. It ruptured during the dissection Procedure Description After the patient was placed in supine position and anesthesia was administered with endotracheal intubation. Abdomen was prepped with ChloraPrep solution and draped in a sterile manner. A timeout was performed and a small incision was made 6 cm above the umbilicus. Fascia was cleaned and Veress needle was inserted to obtain a pneumoperitoneum up to 15 mmHg. Then I introduced a 12 mm trocar at the umbilicus with a 10 mm camera. Patient was kept in Trendelenburg position with the left lateral tilt. Intra-abdominal organs were visualized and this showed omentum covering the right lower quadrant. A 5 mm trocar was inserted in the right lower quadrant under direct vision and using a laparoscopic Mercedes I move the omentum and tried to identify the appendix. Appendix was inflamed in its entire length and was located completely behind the the cecum. I had a tough time visualizing the appendix. Patient was kept on further left lateral position and using a 30 degree scope I was able to locate the appendix. With considerable difficulty I dissected out the appendix without injuring the cecum and in the process I broke the appendix about 2 cm from the tip. But there was no pus and there is no contamination. When the base of the appendix was reached it was stapled with 35 power jose. Then the appendix was retrieved through the Endopouch through the supra umbilical port. There was some bleeding on the retroperitoneum which was controlled with harmonic robbie and Surgicel was left in place. Then after irrigating and cleaning the pelvis and the right lower quadrant all the trocars were pulled out and the pneumoperitoneum was let out. Fascia was closed with interrupted 0 Ethibond and then I injected half percent Marcaine with epinephrine for analgesia. Skin was then closed with interrupted 4-0 nylon stitches and a Tegaderm dressing was applied. Patient tolerated the procedure well and returned to recovery room in stable condition. Anesthesia GETA Pathology / specimen Other (The appendix, ruptured) IVF Infused 900 Estimated Blood Loss 100 Condition Stable Disposition PACU Surgeon Tami Nichole MD Surgical Staff Operation Date: 06/16/25 08:15 Case Staff Anesthesiologist: Tad Hager RN First Assistant: Fabi Mae
--- NOTE | 2025-06-16 10:02 | SUR.PHASEI ---
1002: Pt. AAOx4, vitals stable, breathing unlabored, no complaint of pain or nausea, x2 dressing sites to ABD CDI, x1 dressing has scant amount of drainage, drainage is marked to determine if it is an active bleed, report received from MD Hager and Racquel HOBBS.
[2025-06-16] MEDS: HYDROmorphone INJ 2 MG/ML VIAL 0.4 MG IVP ×2 (10:23→10:39)
--- NOTE | 2025-06-16 10:55 | SUR.PHASEI ---
1055: Pt. AAOx4, vitals stable, breathing unlabored, complaint of slight pain and nausea, pt. stated both are tolerable, x2 dressing sites to ABD CDI, x1 dressing had active bleed, MD Nichole notified, stated to remove dressing, apply pressure with 4x4, and redress. Pressure was applied, 4x4, and hypafix tape placed. Educated pt. to notify nurse if she noticed continued bleeding at incision, pt. verbalized understanding. Pt. tolerated bites of ice chips well, gave report to Trudy HOBBS prior to transfer to room 354, Trudy made aware of the incision that had slight bleeding.
[2025-06-16] MEDS: PIPER/TAZO 3.375 GM PREMIX 3.375 GM/50 ML BAG IV ×2 (12:33→21:05)
--- NOTE | 2025-06-16 15:15 | PC.SS ---
SS met with dad regarding patient's d/c plan. Pt is alert/oriented. Pt was admitted for Acute Appendicitis. Dad confirmed demographic and contact information is correct on facesheet. Pt resides with both parents. Pt ambulates using a cane. Pt is ok with all ADLs. Patient utilizes [facility] [employer]. Jass Cooper and mom, Izabel Huber are patient's medical decision maker if she is unable. Patient will return home upon d/c. Pt followed up with PCP last week. D/C plan: Return home Next of Kin: braydon Hilliard, phone# [phone] or Izabel Huber, yanna, phone# [phone] [facility]CP: [facility] Address: Correct on facesheet
--- NOTE | 2025-06-16 17:05 | XR_ITS ---
EXAMINATION: Abdominal series 3 views including a PA chest TECHNIQUE: AP portable semiupright chest AP upright AP supine abdomen 2 views total 3 views Date and time: June 16, 2025, 1726 hours INDICATIONS: Postop abdominal pain FINDINGS: Mild to moderate colonic ileus No obstruction Intact osseous structures Mild small bowel ileus IMPRESSION: Mild to moderate colonic ileus
[2025-06-16] MEDS: HYDROmorphone INJ 2 MG/ML VIAL 1 MG IVP (17:22)
--- NOTE | 2025-06-16 17:43 | ESPR_ITS ---
Documentation for date of: 06/16/25 Subjective Subjective Brief History: History of present illness revealed that the patient was in her usual health until 3:00 yesterday morning when she had some pain in the abdomen. She vomited many times. Had a bowel movement. No diarrhea. The pain in the abdomen was very severe especially after lunch and she could not eat. She came to the emergency room and was found to have acute appendicitis. Her past medical his tory is very complicated and she has numerous medical problems. She has a constant migraine and then history of seizures and fibromyalgia and she is being evaluated in [facility] for some neurological disorder. Patient also is losing the balance and is walking with a cane because of the frequent falls that happen spontaneously. He also has memory loss intermittently. Past surgery consist of laparoscopic cholecystectomy and some shoulder surgery. She is on numerous medications that is not listed here Narrative: The patient suddenly started having pain in the abdomen and was crying and writhing in pain. She was in position and the nurses were about to call rapid response because of the undue amount of pain. They also called me saying that she is very distended. Patient did not vomit but she was nauseated. She has been stable since surgery until suddenly this change happened. I ordered some Toradol earlier because the morphine was not helping but in spite of Toradol she developed severe pain Exam Vital Signs Temp Pulse Resp BP Pulse Ox O2 Del Method O2 Flow Rate 97.3 F 88 17 111/80 99 Room Air 2 06/16/25 16:00 06/16/25 16:00 06/16/25 16:00 06/16/25 16:00 06/16/25 16:00 06/16/25 16:00 06/16/25 10:17 Vital signs are normal with heart rate of around 88 Routine Abdominal Exam Comments: Abdominal examination is unremarkable and there are some bowel sounds. Results Results: Imaging Imaging narrative: X-ray of the abdomen and chest done at the bedside was unremarkable Assessment & Plan Assessment Additional comments: Impression: Because of this unexplained pain and anxiety is not clear. Patient has some neurological problem for long time including seizures migraine fibromyalgia and imbalance her gait Plan Plan: We shall give milligram of Ativan and hydromorphone 1 mg. Will ask the hospitalist to manage her underlying medical problem if any there is not been diagnosed yet. PROCEDURES: Procedures Laparoscopic appendectomy
[2025-06-16] MEDS: LORazepam 2 MG/ML VIAL 1 MG IVP (17:53)
--- NOTE | 2025-06-16 17:56 | ESCONSULT_ITS ---
<Statement entered by Pricilla Churchill MD - 06/18/25 13:18> In summary: 44 year old female with history of poorly controlled fibrolyleiga who underwent elective uncomplicated appendectomy with general surgery. Internal medicine was consulted for pain management. We have started multimodal pain meds including PRN. Her pain appears controlled. I?ve reviewed the note and agree with this assessment and plan, with the exceptions outlined above. I personally went over the labs, imaging, home medications, and prior records, and examined the patient. The case was also reviewed with the attending physician. Please note: this document was transcribed using voice recognition technology; minor inaccuracies may be present. Pricilla Churchill DO PGY II HPI Data of Consult Requesting Physician: Tami Nichole MD Admitting Provider: Tami Nichole MD Attending Provider: Tami Nichole MD Primary Care Provider: Shad Brown MD Consult Narrative Reason for consult: Pain Management History of present illness: 44-year-old female with a history of fibromyalgia, seizure disorder, migraines, anxiety, and hypothyroidism, who presented to the ED on 06/15/25 with acute right-sided abdominal pain that became progressively severe over 24 hours. She was found to have acute appendicitis on CT imaging and underwent laparoscopic appendectomy on 06/16/25. Operative course was notable for a retrocecal appendix with intraoperative rupture during difficult dissection, without gross contamination. She tolerated the procedure and was transferred to PACU in stable condition. Postoperatively, the patient initially appeared stable but later developed sudden onset severe abdominal pain, described by family as extreme and out of proportion to prior experiences. Pain was associated with crying, inability to lie flat, positioning, and significant anxiety. Morphine provided minimal relief, and Toradol was ineffective. No vomiting, chest pain, dyspnea, or urinary symptoms were reported. Per discussion with her father (present at bedside), this level of pain is new and not typical for her. She does not use opioid medications at baseline. He reports she has been off several of her home medications for approximately two days, which may be contributing to symptom exacerbation. Father was unable to provide a complete medication list at bedside, noting that medications are frequently adjusted by multiple specialists ([facility], [place], [place]). Bedside abdominal and chest X-ray obtained due to concern for acute change was unremarkable. Laboratory evaluation did not reveal evidence of acute postoperative complication. Past Medical History * Fibromyalgia * Seizure disorder * Chronic migraines * Anxiety and depression * Hypothyroidism * Asthma * Gait instability with frequent falls Past Surgical History * Laparoscopic cholecystectomy * Shoulder surgery * Tonsillectomy Medications (Per Family- Incomplete, To Be Verified) * Levetiracetam (Keppra) ? possibly 500 mg BID * Levothyroxine 75 mcg daily * Amitriptyline 100 mg nightly * Baclofen PRN * Hydroxyzine PRN * Vitamins/supplements Allergies Not documented. Family History * Asthma (mother) * Cardiac disease * Cancer * Anesthesia reactions Social History * Never smoker * Lives at home * Significant caregiver independence * Father primary support locally; spouse out of state Review of Systems Positive for severe abdominal pain and anxiety. Negative for chest pain, shortness of breath, vomiting, fevers, or urinary symptoms. All other systems reviewed and negative. cc:: cc: Tami Nichole MD Exam Vital Signs Temp Pulse Resp BP Pulse Ox O2 Del Method O2 Flow Rate 97.3 F 88 17 111/80 99 Room Air 2 06/16/25 16:00 06/16/25 16:00 06/16/25 16:00 06/16/25 16:00 06/16/25 16:00 06/16/25 16:00 06/16/25 10:17 Narrative Exam General: Awake, intermittently distressed due to pain; episodes of crying and restlessness Abdomen: Soft, mildly distended, diffusely tender; no rebound or guarding; laparoscopic incisions clean, dry, intact Cardiac: Regular rate and rhythm Pulmonary: No respiratory distress Neuro: Alert, oriented; no focal deficits Results Labs 06/18/25 04:25 06/18/25 12:32 Labs: Short CBC 06/16/25 Range/Units 00:35 WBC 20.0 H (3.6-11.0) Thou/mm3 Hgb 13.4 (12.0-16.0) g/dL Hct 39.8 (36.0-46.0) % Plt Count 242 (140-440) Thou/mm3 BMP 06/16/25 00:35 Sodium 138 Potassium 3.6 Chloride 104 Carbon Dioxide 20.2 BUN 7 L Creatinine 0.8 Glucose 140 H Calcium 9.9 Liver Function 06/16/25 Range/Units 00:35 Total Bilirubin 0.5 (0.3-1.2) mg/dL Direct Bilirubin 0.1 (0.0-0.3) mg/dL AST 22 (0-34) U/L ALT 11 (10-49) U/L Alkaline Phosphatase 84 (46-116) U/L Albumin 4.7 (3.5-5.0) gm/dL Urine 06/16/25 Range/Units 02:30 Urine Color Yellow (Lt Yel-Yel) Urine Clarity Clear (Clear/Hazy) Urine pH 8.5 H (5.0-7.0) Ur Specific South Range 1.024 (1.001-1.035) Urine Protein 1+ A (Neg - Trace) Urine Glucose (UA) Negative (Negative) Quality Measures Quality Measures VTE prophylaxis Medications Home Medications and Allergies Home Medications ?Medication ?Instructions ?Recorded ?Confirmed ?Type albuterol sulfate 90 mcg/actuation 1 inh inhalation QI D PRN Wheezing 11/24/20 06/17/25 History aerosol inhaler atorvastatin 20 mg tablet 20 mg PO QDAY 11/24/2006/17 History montelukast 10 mg tablet 10 mg PO QDAY 11/24/2006/17 History albuterol sulfate 2.5 mg/3 mL 2.5 mg inhalation PRN OH N Wheezing 02/20/21 06/17/25 History (0.083 %) solution for nebulization aspirin 81 mg tablet 81 mg PO QDAY 02/21/2106/17 History amitriptyline 100 mg tablet 100 mg PO DAILY Anxiety/pa in 06/16/25 06/16/25 History baclofen 10 mg tablet 10 mg PO Q12H Muscle spasms 06/16/25 06/17/25 History cetirizine 10 mg capsule 10 mg PO DAILY Allergies 06/17/25 History hydroxyzine HCl 25 mg tablet 25 mg PO TID PRN Anxiety 06/16/25 06/17/25 History levetiracetam 750 mg 1,500 mg PO DAILY Seizures 1 08/17/24 06/16/25 History tablet,extended release 24 hr levothyroxine 75 mcg tablet 75 mcg PO DAILY 06/16/25 1 08/18/24 History Allergies Allergy/AdvReac Type Severity Reaction Status Date / Time chlorpheniramine (From Allergy Hives Verified 06/16/25 00:06 Ornade) phenylpropanolamine (From Allergy Hives Verified 06/16/25 00:06 Ornade) sulfamethoxazole (From Allergy Hives Verified 06/16/25 00:06 Bactrim) trimethoprim (From Bactrim) Allergy Hives Verified 06/16/25 00:06 Visit Medications Acetaminophen (Acetaminophen 325 Mg Tablet) 650 mg PO Q6HR PRN PRN Reason: [id number] Stop: 07/16/25 11:12 Sodium Chloride (Ns) 1,000 mls @ 100 mls/hr IV Q10H THADDEUS Stop: 07/16/25 03:52 Last Admin: 06/16/25 12:51 Dose: Not Given Piperacillin/Tazobactam/Dextrose (Zosyn) 3.375 gm in 50 mls @ 100 mls/hr IV Q8HR THADDEUS; Protocol Stop: 06/23/25 11:12 Last Admin: 06/16/25 17:38 Dose: Not Given Ketorolac Tromethamine (Ketorolac Inj 30 Mg/Ml Vial) 30 mg IVP Q6HR PRN PRN Reason: PAIN SCALE 4-6 (Moderate Stop: 06/21/25 16:41 Last Admin: 06/16/25 16:51 Dose: 30 mg Morphine Sulfate (Morphine Sulf Inj 4 Mg/Ml Vial) 4 mg IVP Q4HR PRN PRN Reason: PAIN SCALE 4-10(Mod-Sev Stop: 06/21/25 03:51 Last Admin: 06/16/25 15:59 Dose: 4 mg Ondansetron HCl (Ondansetron Inj 2 Mg/Ml Inj 2 Ml) 4 mg IVP Q4H PRN; Protocol PRN Reason: NAUSEA OR VOMITING Stop: 07/16/25 03:51 Last Admin: 06/16/25 16:46 Dose: 4 mg Discontinued Medications Fentanyl Citrate (Fentanyl Cit Inj 50 Mcg/Ml Amp 2ml) 25 mcg IVP Q5M PRN PRN Reason: PAIN SCALE 1-3 (mild Stop: 06/16/25 10:15 Hydromorphone HCl (Hydromorphone Inj 2 Mg/Ml Vial) 2 mg IVP X1 ONE Stop: 06/16/25 00:14 Last Admin: 06/16/25 00:39 Dose: 2 mg Hydromorphone HCl (Hydromorphone Inj 2 Mg/Ml Vial) 0.4 mg IVP Q5M PRN PRN Reason: PAIN SCALE 7-10 (Severe Stop: 06/16/25 10:15 Last Admin: 06/16/25 10:39 Dose: 0.4 mg Hydromorphone HCl (Hydromorphone Inj 2 Mg/Ml Vial) 1 mg IVP X1 ONE Stop: 06/16/25 17:09 Last Admin: 06/16/25 17:22 Dose: 1 mg Sodium Chloride (Ns) 1,000 mls @ 999 mls/hr IV .Q1H1M ONE Stop: 06/16/25 01:13 Last Infusion: 06/16/25 01:44 Dose: Infused Lactated Ringer's (Lactated Ringers) 1,000 mls @ 1,000 mls/hr IV .Q1H ONE Stop: 06/16/25 02:24 Last Admin: 06/16/25 01:43 Dose: 1,000 mls/hr Ceftriaxone Sodium/Dextrose (Rocephin/D5w 1gm Iv Premix) 1 gm in 50 mls @ 100 mls/hr IV X1 ONE Stop: 06/16/25 04:07 Last Admin: 06/16/25 04:51 Dose: 100 mls/hr Metronidazole (Flagyl 500 Mg Iv) 500 mg in 100 mls @ 100 mls/hr IV X1 ONE Stop: 06/16/25 04:37 Last Admin: 06/16/25 03:56 Dose: 100 mls/hr Ketorolac Tromethamine (Ketorolac Inj 30 Mg/Ml Vial) 30 mg IVP X1 ONE Stop: 06/16/25 00:14 Last Admin: 06/16/25 00:39 Dose: 30 mg Lorazepam (Lorazepam 2 Mg/Ml Vial) 2 mg IVP X1 ONE Stop: 06/16/25 01:24 Last Admin: 06/16/25 01:39 Dose: 2 mg Lorazepam (Lorazepam 2 Mg/Ml Vial) 1 mg IVP X1 ONE Stop: 06/16/25 17:39 Last Admin: 06/16/25 17:53 Dose: 1 mg Morphine Sulfate (Morphine Sulf Inj 4 Mg/Ml Vial) 3 mg IV Q5M PRN PRN Reason: PAIN SCALE 4-6 (Moderate Stop: 06/16/25 10:15 Ondansetron HCl (Ondansetron Inj 2 Mg/Ml Inj 2 Ml) 4 mg IVP X1 ONE; Protocol Stop: 06/16/25 00:14 Last Admin: 06/16/25 00:39 Dose: 4 mg Ondansetron HCl (Ondansetron Inj 2 Mg/Ml Inj 2 Ml) 4 mg IVP X1 ONE Stop: 06/16/25 08:15 Last Admin: 06/16/25 10:49 Dose: 4 mg Assessment & Plan Plan 44-year-old female POD#0 status post laparoscopic appendectomy with severe postoperative abdominal pain, likely multifactorial in etiology, including expected postoperative pain following difficult retrocecal appendectomy, central pain sensitization from fibromyalgia, anxiety, and interruption of home medications. No current evidence of acute surgical complication based on exam, imaging, and laboratory evaluation. # Acute Postoperative Abdominal Pain Severe abdominal pain following laparoscopic appendectomy, refractory to initial opioid therapy, with reassuring exam, labs, and imaging. Plan: * Continue multimodal pain control * Hydromorphone IV PRN for severe pain * Ketorolac PRN if renal function remains stable * Serial abdominal exams # Fibromyalgia with Central Pain Sensitization Chronic pain syndrome likely contributing to pain amplification and poor opioid response. Plan: * Resume home neuropathic pain medications once confirmed * Set expectations regarding postoperative pain course # Anxiety Contributing to Pain Response Significant anxiety observed during pain episodes, likely worsening pain perception. Plan: * Lorazepam PRN for severe anxiety/panic * Reassurance and calming environment * Avoid excessive stimulation overnight # Seizure Disorder History of epilepsy with recent interruption of home medications per family. Plan: * Resume most recent known levetiracetam dosing (tentatively 500 mg BID) * Complete formal medication reconciliation in AM * Maintain seizure precautions # Hypothyroidism On levothyroxine with recent dose adjustment; TSH low-normal. Plan: * Continue levothyroxine 75 mcg daily * Follow up free T4 when resulted * No acute intervention needed tonight Health Maintenance Disposition: Inpatient surgical floor Diet: Advance as tolerated VTE Prophylaxis: Per surgery protocol GI Prophylaxis: Not indicated Code Status: Full code ----- Plan discussed with attending physician Dr. Rizzo and senior resident Dr. Kerline Chauhan MD PGY-1 Internal Medicine Attending Provider Attestation/Addendum I have seen and examined the patient. I was physically present for the beard portions of the services provided including history, physical exam, diagnosis, treatment plans and orders. I agree with assessment and plan of care as documented by residents. Even though this this note was carefully revised there may still be minor errors in wafer fab operator due to voice recognition software. Sunday Rizzo MD
[2025-06-16 18:09] LABS: Basophils # (Auto) 0.0 Thou/mm3 (0.0-0.2); Basophils % (Auto) 0 % (0-2.5); Eosinophils # (Auto) 0.0 Thou/mm3 (0.0-0.5); Eosinophils % (Auto) 0 % (0-10); Hematocrit 36.7 % (36.0-46.0); Hemoglobin 12.1 g/dL (12.0-16.0); Immature Granulocytes Auto 0.07 Thou/mm3 (0.00-0.00); Lymphocytes # (Auto) 0.7 Thou/mm3 (1.0-4.8); Lymphocytes % (Auto) 4 % (10-50); Mean Corpuscular HGB Conc 33.0 g/dl (31.0-37.0); Mean Corpuscular Hemoglobin 28.9 pg (25.0-35.0); Mean Corpuscular Volume 88 fL (80-100); Monocytes # (Auto) 0.7 Thou/mm3 (0.0-0.8); Monocytes % (Auto) 4 % (0-12); Neutrophils # (Auto) 16.4 Thou/mm3 (1.8-7.7); Neutrophils % (Auto) 92 % (37-80); Nucleated Red Blood Cell # 0.00 Thou/mm3 (0.00-0.00); Nucleated Red Blood Cell % 0 /100 WBC (0); Platelet Count 234 Thou/mm3 (140-440); RDW Standard Deviation 43.3 fL (36.4-46.3); Red Blood Count 4.19 Miln/mm3 (4.00-5.20); White Blood Count 17.9 Thou/mm3 (3.6-11.0)
[2025-06-16] MEDS: BACLOFEN 10 MG TABLET PO (19:24)
[2025-06-17] VITALS (7 sets, daily range): BP systolic 107–122; BP diastolic 63–90; PULSE 93–120; RESP 15–20; TEMP 36.4–36.9; O2SAT 97–100
[2025-06-17] MEDS: PIPER/TAZO 3.375 GM PREMIX 3.375 GM/50 ML BAG IV ×3 (05:44→21:31)
[2025-06-17] MEDS: LEVOTHYROXINE SODIUM 25 MCG TABLET 75 MCG PO (05:44)
[2025-06-17] MEDS: BACLOFEN 10 MG TABLET PO ×2 (05:45→17:49)
[2025-06-17 06:16] LABS: Basophils # (Auto) 0.0 Thou/mm3 (0.0-0.2); Basophils % (Auto) 0 % (0-2.5); Eosinophils # (Auto) 0.0 Thou/mm3 (0.0-0.5); Eosinophils % (Auto) 0 % (0-10); Hematocrit 31.5 % (36.0-46.0); Hemoglobin 10.2 g/dL (12.0-16.0); Immature Granulocytes Auto 0.04 Thou/mm3 (0.00-0.00); Lymphocytes # (Auto) 1.5 Thou/mm3 (1.0-4.8); Lymphocytes % (Auto) 13 % (10-50); Mean Corpuscular HGB Conc 32.4 g/dl (31.0-37.0); Mean Corpuscular Hemoglobin 28.8 pg (25.0-35.0); Mean Corpuscular Volume 89 fL (80-100); Monocytes # (Auto) 1.0 Thou/mm3 (0.0-0.8); Monocytes % (Auto) 9 % (0-12); Neutrophils # (Auto) 8.7 Thou/mm3 (1.8-7.7); Neutrophils % (Auto) 76 % (37-80); Nucleated Red Blood Cell # 0.00 Thou/mm3 (0.00-0.00); Nucleated Red Blood Cell % 0 /100 WBC (0); Platelet Count 172 Thou/mm3 (140-440); RDW Standard Deviation 44.7 fL (36.4-46.3); Red Blood Count 3.54 Miln/mm3 (4.00-5.20); White Blood Count 11.4 Thou/mm3 (3.6-11.0)
[2025-06-17 06:27] LABS: Anion Gap 12 (7-16); Carbon Dioxide 24.2 mMol/L (20.0-31.0); Chloride 108 mMol/L (98-107); Free T4 (Free Thyroxine) 1.33 ng/dL (0.89-1.76); Potassium 3.3 mMol/L (3.4-5.1); Sodium 144 mMol/L (136-145)
[2025-06-17] MEDS: MORPHINE SULF INJ 4 MG/ML VIAL IVP (08:30)
[2025-06-17] MEDS: AMITRIPTYLINE HCL 25 MG TABLET 100 MG PO (08:30)
[2025-06-17] MEDS: SODIUM CHLORIDE 0.9% 1000 ML 1,000 ML 100 ML IV (08:37)
[2025-06-17] MEDS: LORazepam 2 MG/ML VIAL 1 MG IVP (09:09)
--- NOTE | 2025-06-17 10:45 | ESPR_ITS ---
<Statement entered by Sun Watkins MD - 06/20/25 08:01> I reviewed above note and agree with findings and plans. I have also personally examined the patient with medicine team and went over assessment and plan with medical team including seo intern and resident physician. <Statement entered by Дмитрий Moody MD - 06/17/25 14:33> Primary team was consulted by general surgeon Dr. Hernandez for pain management close patient underwent procedure for appendicitis. Per patient since yesterday whenever she eats, she starts to develop right lower quadrant pain described as stabbing in nature. Since surgery patient has had no bowel movements but is producing flatulence. Patient was started on gabapentin and [place] for pain management. I discussed with and supervised the seo intern physician involved in the care of this patient. Patient assessment and plan was discussed with entire medicine team, including my attending. I agree with the assessment and plan as documented by seo intern doctor. Patient care was discussed with my attending physician Dr. June Moody, PGY-3 Documentation for date of: 06/17/25 Subjective Subjective Interval history: Patient seen and examined this morning. She reports that her abdominal pain is unchanged compared to preoperative pain, describing it as severe and persistent. She states pain did improve with morphine overnight as well as ativan. But this morning stated it happened again the pain She had vomiting earlier this morning after eating, without hematemesis. Symptoms have since improved, and she is currently tolerating oral intake better. Denies chest pain, shortness of breath, fevers, or chills. Endorses anxiety as well. Exam Vital Signs Temp Pulse Resp BP Pulse Ox O2 Del Method O2 Flow Rate 98.1 F 101 H 17 122/85 H 99 Nasal Cannula 3 06/17/25 08:00 06/17/25 08:00 06/17/25 08:00 06/17/25 08:00 06/17/25 08:00 06/17/25 08:00 06/17/25 08:00 Narrative Exam General: Awake, intermittently distressed due to pain; episodes of crying and restlessness Abdomen: Soft, mildly distended, diffusely tender; no rebound or guarding; laparoscopic incisions clean, dry, intact Cardiac: Regular rate and rhythm Pulmonary: No respiratory distress Neuro: Alert, oriented; no focal deficits Objective Labs 06/17/25 11:51 06/17/25 05:00 Labs: Laboratory Results - last 24 hr 06/16/25 06/17/25 17:20 05:00 WBC 17.9 H 11.4 H D RBC 4.19 3.54 L Hgb 12.1 10.2 L Hct 36.7 31.5 L MCV 88 89 MCH 28.9 28.8 MCHC 33.0 32.4 RDW Std Deviation 43.3 44.7 Plt Count 234 172 D Neut % (Auto) 92 H 76 Lymph % (Auto) 4 L 13 [place] % (Auto) 4 9 Eos % (Auto) 0 0 Baso % (Auto) 0 0 Neut # (Auto) 16.4 H 8.7 H Lymph # (Auto) 0.7 L 1.5 [place] # (Auto) 0.7 1.0 H Eos # (Auto) 0.0 0.0 Baso # (Auto) 0.0 0.0 Immature Gran # (Auto) 0.07 H 0.04 H Absolute Nucleated RBC 0.00 0.00 Immature Gran % 0 0 Nucleated RBC % 0 0 Sodium 144 Potassium 3.3 L Chloride 108 H Carbon Dioxide 24.2 Anion Gap 12 Free T4 1.33 Quality Measures Quality Measures VTE prophylaxis Assessment & Plan Assessment Current Active Medications: Generic Name Dose Route Start Last Admin Trade Name Freq PRN Reason Stop Dose Admin Acetaminophen 650 mg 06/16/25 11:13 Acetaminophen 325 Mg Tablet PO 07/16/25 11:12 Q6HR PRN [id number] Amitriptyline HCl 100 mg 06/17/25 09:00 06/17/25 08:30 Amitriptyline Hcl 25 Mg Tablet PO 07/17/25 08:59 100 mg DAILY THADDEUS Administration Baclofen 10 mg 06/16/25 18:45 06/17/25 05:45 Baclofen 10 Mg Tablet PO 07/16/25 18:44 10 mg Q12H THADDEUS Administration Gabapentin 200 mg 06/17/25 09:30 Gabapentin 100 Mg Capsule PO 07/17/25 09:29 TID THADDEUS Hydroxyzine HCl 25 mg 06/16/25 18:32 06/17/25 08:36 Hydroxyzine Hcl 25 Mg Tablet PO 07/16/25 20:59 25 mg QID PRN Administration AGITATION Sodium Chloride 1,000 mls @ 100 mls/hr 06/16/25 03:53 06/17/25 08:37 Ns IV 07/16/25 03:52 100 mls/hr Q10H THADDEUS Administration Piperacillin/Tazobactam/Dextrose 3.375 gm in 50 mls @ 100 mls/hr 06/16/25 11:13 06/17/25 05:44 Zosyn IV 06/23/25 11:12 100 mls/hr Q8HR THADDEUS Administration Protocol Ketorolac Tromethamine 30 mg 06/16/25 16:42 06/16/25 16:51 Ketorolac Inj 30 Mg/Ml Vial IVP 06/21/25 16:41 30 mg Q6HR PRN Administration PAIN SCALE 4-6 (Moderate Levothyroxine Sodium 75 mcg 06/17/25 06:00 06/17/25 05:44 Levothyroxine Sodium 25 Mcg Tablet PO 07/17/25 05:59 75 mcg ACBR THADDEUS Administration Morphine Sulfate 4 mg 06/17/25 08:38 Morphine Sulf Inj 4 Mg/Ml Vial IVP 06/21/25 03:51 Q4HR PRN PAIN SCALE 7-10(Mod-Sev Non-Formulary Medication mg 06/17/25 09:00 Levetiracetam PO 07/17/25 08:59 DAILY THADDEUS Ondansetron HCl 4 mg 06/16/25 03:52 06/16/25 16:46 Ondansetron Inj 2 Mg/Ml Inj 2 Ml IVP 07/16/25 03:51 4 mg Q4H PRN Administration NAUSEA OR VOMITING Protocol Plan 44-year-old female POD#1 s/p laparoscopic appendectomy for acute retrocecal appendicitis with intraoperative rupture, with history of fibromyalgia, migraines, seizure disorder, and anxiety, now with persistent postoperative abdominal pain identical to preoperative pain, without objective evidence of acute surgical complication. # Acute Postoperative Abdominal Pain Severe abdominal pain following laparoscopic appendectomy, refractory to initial opioid therapy, with reassuring exam, labs, and imaging. Plan: * Continue multimodal pain control * Hydromorphone IV PRN for severe pain * Ketorolac PRN if renal function remains stable * Serial abdominal exams # Fibromyalgia with Central Pain Sensitization # Suspected Neuropathic # Phantom Pain Syndrome? Pain quality and patient description (identical to preoperative pain despite removal of appendix) raise concern for neuropathic or phantom-type pain, particularly in the setting of fibromyalgia and central pain sensitization. Plan: * Initiated gabapentin 200 mg TID * Monitor response over next 24?48 hours * Consider cautious uptitration if tolerated and pain persists * Avoid excessive opioid escalation given suspected mechanism * Resume home neuropathic pain medications once confirmed * Set expectations regarding postoperative pain course # Anxiety Contributing to Pain Response Significant anxiety observed during pain episodes, likely worsening pain perception. Plan: * Lorazepam PRN for severe anxiety/panic * Reassurance and calming environment * Avoid excessive stimulation overnight # Seizure Disorder History of epilepsy with recent interruption of home medications per family. Plan: * Resume most recent known levetiracetam dosing (tentatively 500 mg BID) * Complete formal medication reconciliation in AM * Maintain seizure precautions # Hypothyroidism On levothyroxine with recent dose adjustment; TSH low-normal. T4 within normal Plan: * Continue levothyroxine 75 mcg daily * No acute intervention needed tonight Health Maintenance Disposition: Inpatient surgical floor Diet: Advance as tolerated VTE Prophylaxis: Per surgery protocol GI Prophylaxis: Not indicated Code Status: Full code ----- Plan discussed with attending physician Dr. Watkins and senior resident Dr. Fransisco Chauhan MD PGY-1 Internal Medicine
--- NOTE | 2025-06-17 11:04 | ESPR_ITS ---
Documentation for date of: 06/17/25 Subjective Subjective Brief History: History of present illness revealed that the patient was in her usual health until 3:00 yesterday morning when she had some pain in the abdomen. She vomited many times. Had a bowel movement. No diarrhea. The pain in the abdomen was very severe especially after lunch and she could not eat. She came to the emergency room and was found to have acute appendicitis. Her past medical his tory is very complicated and she has numerous medical problems. She has a constant migraine and then history of seizures and fibromyalgia and she is being evaluated in [facility] for some neurological disorder. Patient also is losing the balance and is walking with a cane because of the frequent falls that happen spontaneously. He also has memory loss intermittently. Past surgery consist of laparoscopic cholecystectomy and some shoulder surgery. She is on numerous medications that is not listed here Narrative: Patient had an episode of severe pain in the abdomen this morning after eating clear liquids. She was nauseated but did not throw up. Exam Vital Signs Temp Pulse Resp BP Pulse Ox O2 Del Method O2 Flow Rate 98.1 F 101 H 17 122/85 H 99 Nasal Cannula 3 06/17/25 08:00 06/17/25 08:00 06/17/25 08:00 06/17/25 08:00 06/17/25 08:00 06/17/25 08:00 06/17/25 08:00 Vital signs are normal other than tachycardia of 101 around 8:00 this morning Routine Abdominal Exam Comments: Abdominal examination showed no significant abnormality other than some tenderness probably related to the trocar sites Results Results: Laboratory Laboratory Narrative: Laboratory results show mild hypokalemia and WBC is down to 11,000 Assessment & Plan Assessment Additional comments: Impression: I do not have a reason for her repeated episodes of sudden abdominal pain that is so severe Plan Plan: I have consulted hospitalist to help manage her anxiety and her muscle spasm including pain. PROCEDURES: Procedures Laparoscopic appendectomy
[2025-06-17] MEDS: GABAPENTIN 100 MG CAPSULE 200 MG PO ×3 (11:18→21:31)
--- NOTE | 2025-06-17 11:20 | PC.NURSE ---
During morning med pass at 0845, upon entering the patient's room. I noticed the patient in a significant amount of pain. The patient was noted to be in the position, hyperventilating and was diaphoretic. The patient was given 4mg morphine without relief. Resident physician came to bed side and evaluated patient. After resident evaluation I was instructed to give Ketrolac 30 mg IVP. Prior to the administration of medication, Dr Hernandez, the patient's surgeon came to the bedside and evaluated the patient. The patient's pain was unrelieved by pain medication. Dr Hernandez instructed me to give 1 mg Ativan IVP. Followed through with order, I have now reassessed the patient and she is appears to be much more relaxed. She is awake, alert, but states she feels sleepy but her pain has subsided.
[2025-06-17 12:01] LABS: Hematocrit 31.1 % (36.0-46.0); Hemoglobin 9.9 g/dL (12.0-16.0)
[2025-06-17] MEDS: KETOROLAC INJ 30 MG/ML VIAL IVP ×2 (13:41→20:04)
[2025-06-17] MEDS: HYDROmorphone INJ 2 MG/ML VIAL 1 MG IVP (18:42)
[2025-06-17] MEDS: ONDANSETRON INJ 2 MG/ML INJ 2 ML 4 MG IVP (20:05)
--- NOTE | 2025-06-17 23:02 | ESPR_ITS ---
Documentation for date of: 06/17/25 Subjective Subjective Brief History: History of present illness revealed that the patient was in her usual health until 3:00 yesterday morning when she had some pain in the abdomen. She vomited many times. Had a bowel movement. No diarrhea. The pain in the abdomen was very severe especially after lunch and she could not eat. She came to the emergency room and was found to have acute appendicitis. Her past medical his tory is very complicated and she has numerous medical problems. She has a constant migraine and then history of seizures and fibromyalgia and she is being evaluated in [facility] for some neurological disorder. Patient also is losing the balance and is walking with a cane because of the frequent falls that happen spontaneously. He also has memory loss intermittently. Past surgery consist of laparoscopic cholecystectomy and some shoulder surgery. She is on numerous medications that is not listed here Narrative: Patient was doing reasonably well last night but she started having severe pain this morning after eating breakfast. Her pain was again in the upper abdomen and to the right side and she was rolled up in the position. Exam Vital Signs Temp Pulse Resp BP Pulse Ox O2 Del Method O2 Flow Rate 98.3 F 109 H 19 113/77 99 Room Air 3 06/17/25 20:00 06/17/25 20:00 06/17/25 20:00 06/17/25 20:00 06/17/25 20:00 06/17/25 20:00 06/17/25 16:00 Your vital signs however is normal other than tachycardia. Routine Abdominal Exam Comments: Abdominal examination shows no significant tenderness Results Results: Laboratory Laboratory Narrative: Laboratory results show decreasing WBC towards normal value Assessment & Plan Assessment Additional comments: Impression: Recurrent abdominal pain and inability to eat because of persistent nausea and severe pain after eating Plan Plan: Because of her inability to eat patient will be kept as an inpatient. She may require 1 or 2 more days of hospitalization before discharge. Hospitalist are helping me to manage her pain and anxiety. I do not know why she has pain after eating. We will continue to observe her and monitor her vital signs closely PROCEDURES: Procedures Laparoscopic appendectomy
[2025-06-18] VITALS: BP 106/79; PULSE 101; RESP 16; TEMP 36.5; O2SAT 98
[2025-06-18 04:00] VITALS: BP 111/75; PULSE 107; RESP 17; TEMP 36.9; O2SAT 97
[2025-06-18] MEDS: KETOROLAC INJ 30 MG/ML VIAL IVP ×2 (06:02→17:47)
[2025-06-18] MEDS: LEVOTHYROXINE SODIUM 25 MCG TABLET 75 MCG PO (06:03)
[2025-06-18] MEDS: GABAPENTIN 100 MG CAPSULE 200 MG PO ×2 (06:03→15:22)
[2025-06-18] MEDS: BACLOFEN 10 MG TABLET PO (06:03)
[2025-06-18] MEDS: PIPER/TAZO 3.375 GM PREMIX 3.375 GM/50 ML BAG IV ×3 (06:03→21:16)
[2025-06-18 06:12] LABS: Basophils # (Auto) 0.1 Thou/mm3 (0.0-0.2); Basophils % (Auto) 1 % (0-2.5); Eosinophils # (Auto) 0.2 Thou/mm3 (0.0-0.5); Eosinophils % (Auto) 3 % (0-10); Hematocrit 33.0 % (36.0-46.0); Hemoglobin 10.4 g/dL (12.0-16.0); Immature Granulocytes Auto 0.02 Thou/mm3 (0.00-0.00); Lymphocytes # (Auto) 2.0 Thou/mm3 (1.0-4.8); Lymphocytes % (Auto) 28 % (10-50); Mean Corpuscular HGB Conc 31.5 g/dl (31.0-37.0); Mean Corpuscular Hemoglobin 28.5 pg (25.0-35.0); Mean Corpuscular Volume 90 fL (80-100); Monocytes # (Auto) 0.7 Thou/mm3 (0.0-0.8); Monocytes % (Auto) 10 % (0-12); Neutrophils # (Auto) 4.3 Thou/mm3 (1.8-7.7); Neutrophils % (Auto) 58 % (37-80); Nucleated Red Blood Cell # 0.00 Thou/mm3 (0.00-0.00); Nucleated Red Blood Cell % 0 /100 WBC (0); Platelet Count 192 Thou/mm3 (140-440); RDW Standard Deviation 45.3 fL (36.4-46.3); Red Blood Count 3.65 Miln/mm3 (4.00-5.20); White Blood Count 7.3 Thou/mm3 (3.6-11.0)
[2025-06-18] MEDS: SODIUM CHLORIDE 0.9% 1000 ML 1,000 ML 50 ML IV ×2 (06:19→17:48)
[2025-06-18 07:42] VITALS: BP 125/88; PULSE 97; RESP 17; TEMP 36.6; O2SAT 97
[2025-06-18] MEDS: MORPHINE SULF INJ 4 MG/ML VIAL IVP (08:28)
[2025-06-18] MEDS: ONDANSETRON INJ 2 MG/ML INJ 2 ML 4 MG IVP ×2 (08:28→17:47)
--- NOTE | 2025-06-18 08:44 | PC.NURSE ---
MD Chauhan notified pt is complaining of pain 04/01 to abdomen. MD made aware pt did not tolerate breakfast and vomited. pt was given morphine/zofran IV. also notified pt stated she has not had a bowel movement since 06/15/25. MD to come to bedside and assess pt
--- NOTE | 2025-06-18 09:48 | ESPR_ITS ---
<Statement entered by Sun Watkins MD - 06/20/25 08:03> I reviewed above note and agree with findings and plans. I have also personally examined the patient with medicine team and went over assessment and plan with medical team including international banker and resident physician. <Statement entered by Дмитрий Moody MD - 06/18/25 15:18> Patient day 2 s/p laparoscopic appendectomy, primary team consulted for pain management. We will continue multimodal pain control: morphine, ketoroloac, gabapentin and norco. I discussed with and supervised the international banker physician involved in the care of this patient. Patient assessment and plan was discussed with entire medicine team, including my attending. I agree with the assessment and plan as documented by international banker doctor. Patient care was discussed with my attending physician Dr. June Moody, PGY-3 Documentation for date of: 06/18/25 Subjective Subjective Interval history: Patient seen and examined this morning. She continues to report persistent severe abdominal pain, unchanged in character and similar to her preoperative pain. She had recurrent episodes of vomiting this morning, with limited relief from ondansetron alone. She received additional morphine 2 mg IV this morning with partial relief. Continues to endorse anxiety but denies chest pain, shortness of breath, fevers, or chills. Exam Vital Signs Temp Pulse Resp BP Pulse Ox O2 Del Method O2 Flow Rate 98 F 97 17 125/88 H 97 Room Air 3 06/18/25 07:42 06/18/25 07:42 06/18/25 07:42 06/18/25 07:42 06/18/25 07:42 06/18/25 07:42 06/17/25 16:00 Narrative Exam General: Awake, uncomfortable but not in acute distress Abdomen: Soft, mildly distended, diffusely tender; no rebound or guarding; laparoscopic incisions clean, dry, intact CV: Regular rate and rhythm Pulm: Clear to auscultation bilaterally Neuro: Alert and oriented, no focal deficits Objective Labs 06/18/25 04:25 06/18/25 04:25 Labs: Laboratory Results - last 24 hr 06/17/25 06/18/25 11:51 04:25 WBC 7.3 RBC 3.65 L Hgb 9.9 L 10.4 L Hct 31.1 L 33.0 L MCV 90 MCH 28.5 MCHC 31.5 RDW Std Deviation 45.3 Plt Count 192 Neut % (Auto) 58 Lymph % (Auto) 28 Thurston % (Auto) 10 Eos % (Auto) 3 Baso % (Auto) 1 Neut # (Auto) 4.3 Lymph # (Auto) 2.0 Thurston # (Auto) 0.7 Eos # (Auto) 0.2 Baso # (Auto) 0.1 Immature Gran # (Auto) 0.02 H Absolute Nucleated RBC 0.00 Immature Gran % 0 Nucleated RBC % 0 Sodium 144 Potassium 3.5 Chloride 106 Carbon Dioxide 27.1 Anion Gap 11 Quality Measures Quality Measures VTE prophylaxis Assessment & Plan Assessment Current Active Medications: Generic Name Dose Route Start Last Admin Trade Name Freq PRN Reason Stop Dose Admin Acetaminophen 650 mg 06/16/25 11:13 Acetaminophen 325 Mg Tablet PO 07/16/25 11:12 Q6HR PRN [id number] Amitriptyline HCl 100 mg 06/17/25 09:00 06/17/25 08:30 Amitriptyline Hcl 25 Mg Tablet PO 07/17/25 08:59 100 mg DAILY THADDEUS Administration Baclofen 10 mg 06/16/25 18:45 06/18/25 06:03 Baclofen 10 Mg Tablet PO 07/16/25 18:44 10 mg Q12H THADDEUS Administration Levetiracetam Er 750 0 ea 06/18/25 09:00 Mg PO 07/18/25 08:59 BID THADDEUS Gabapentin 200 mg 06/17/25 09:30 06/18/25 06:03 Gabapentin 100 Mg Capsule PO 07/17/25 09:29 200 mg TID THADDEUS Administration Hydroxyzine HCl 25 mg 06/16/25 18:32 06/17/25 08:36 Hydroxyzine Hcl 25 Mg Tablet PO 07/16/25 20:59 25 mg QID PRN Administration AGITATION Piperacillin/Tazobactam/Dextrose 3.375 gm in 50 mls @ 100 mls/hr 06/16/25 11:13 06/18/25 06:03 Zosyn IV 06/23/25 11:12 100 mls/hr Q8HR THADDEUS Administration Protocol Sodium Chloride 1,000 mls @ 50 mls/hr 06/17/25 20:00 06/18/25 06:19 Ns IV 07/17/25 19:59 50 mls/hr Q10H THADDEUS Administration Ketorolac Tromethamine 30 mg 06/16/25 16:42 06/18/25 06:02 Ketorolac Inj 30 Mg/Ml Vial IVP 06/21/25 16:41 30 mg Q6HR PRN Administration PAIN SCALE 4-6 (Moderate Levothyroxine Sodium 75 mcg 06/17/25 06:00 06/18/25 06:03 Levothyroxine Sodium 25 Mcg Tablet PO 07/17/25 05:59 75 mcg ACBR THADDEUS Administration Morphine Sulfate 4 mg 06/17/25 08:38 06/18/25 08:28 Morphine Sulf Inj 4 Mg/Ml Vial IVP 06/21/25 03:51 4 mg Q4HR PRN Administration PAIN SCALE 7-10(Mod-Sev Ondansetron HCl 4 mg 06/16/25 03:52 06/18/25 08:28 Ondansetron Inj 2 Mg/Ml Inj 2 Ml IVP 07/16/25 03:51 4 mg Q4H PRN Administration NAUSEA OR VOMITING Protocol Pantoprazole Sodium 40 mg 06/17/25 18:45 06/18/25 08:28 Pantoprazole Inj 40 Mg Vial IVP 07/17/25 18:44 40 mg QDAY THADDEUS Administration Plan 44-year-old female POD#2 s/p laparoscopic appendectomy for acute retrocecal appendicitis with intraoperative rupture, with history of fibromyalgia, migraines, seizure disorder, anxiety, and hypothyroidism, now with ongoing postoperative abdominal pain identical to preoperative pain and recurrent nausea/vomiting, without objective evidence of acute surgical complication. # Acute Postoperative Abdominal Pain # POD#2 s/p laparoscopic appendectomy Severe pain unchanged from preoperative baseline, partially opioid-responsive, without peritoneal signs or concerning objective findings. Plan: * Continue multimodal pain control * Morphine IV PRN for severe pain (received additional 2 mg this morning) * Ketorolac PRN if renal function remains stable * Serial abdominal exams # Fibromyalgia with Central Pain Sensitization # Suspected Neuropathic # Phantom Pain Syndrome? Pain quality and patient description (identical to preoperative pain despite removal of appendix) raise concern for neuropathic or phantom-type pain, particularly in the setting of fibromyalgia and central pain sensitization. Plan: * Increase gabapentin to 300 mg TID * Monitor response closely over next 24?48 hours * Avoid unnecessary benzodiazepines for pain control * Continue to set expectations regarding pain trajectory # Nausea and Vomiting Recurrent vomiting this morning with inadequate response to ondansetron alone. Plan: * Start metoclopramide (Reglan) * Continue ondansetron PRN * Advance diet as tolerated * Monitor for ileus or recurrent emesis # Anxiety Contributing to Pain Response Significant anxiety observed during pain episodes, likely worsening pain perception. Plan: * Avoid Ativan at this time, as it is unlikely to address pain mechanism * Reassurance and calming environment * Avoid excessive stimulation overnight # Seizure Disorder History of epilepsy with recent interruption of home medications per family. Plan: * Continue levetiracetam 500 mg BID * Complete formal medication reconciliation in AM * Maintain seizure precautions # Hypothyroidism On levothyroxine with recent dose adjustment; TSH low-normal. T4 within normal Plan: * Continue levothyroxine 75 mcg daily * No acute intervention needed tonight Health Maintenance Disposition: Inpatient surgical floor Diet: Advance as tolerated VTE Prophylaxis: Per surgery protocol GI Prophylaxis: Not indicated Code Status: Full code ----- Plan discussed with attending physician Dr. Watkins and senior resident Dr. Fransisco Chauhan MD PGY-1 Internal Medicine
[2025-06-18] MEDS: METOCLOPRAMIDE INJ 5 MG/ML VIAL 2 ML 10 MG IVP (10:11)
[2025-06-18] MEDS: MORPHINE SULF INJ 4 MG/ML VIAL 2 MG IVP (10:11)
--- NOTE | 2025-06-18 11:45 | XR_ITS ---
EXAMINATION: Abdomen 2 views TECHNIQUE: AP supine and AP upright abdomen 2 views Date and time: June 18, 2025, 11:58 a.m. INDICATIONS: Abdominal pain this week. FINDINGS: Mild air and stool throughout the colon No obstruction No free air Surgical clips upper right abdomen IMPRESSION: Nonobstructive bowel gas pattern
--- NOTE | 2025-06-18 11:49 | PD.SURPROG ---
Documentation for date of: 06/18/25 Subjective Subjective Brief History: History of present illness revealed that the patient was in her usual health until 3:00 yesterday morning when she had some pain in the abdomen. She vomited many times. Had a bowel movement. No diarrhea. The pain in the abdomen was very severe especially after lunch and she could not eat. She came to the emergency room and was found to have acute appendicitis. Her past medical history is very complicated and she has numerous medical problems. She has a constant migraine and then history of seizures and fibromyalgia and she is being evaluated in [facility] for some neurological disorder. Patient also is losing the balance and is walking with a cane because of the frequent falls that happen spontaneously. He also has memory loss intermittently. Past surgery consist of laparoscopic cholecystectomy and some shoulder surgery. She is on numerous medications that is not listed here Narrative: The patient is still complaining of some nausea and is unable to eat. Every time she eats that she developed severe pain in the abdomen. She is not able to tolerate the full liquids which she is on. Her abdominal pain is still intermittently coming back when she eats Exam Vital Signs Temp Pulse Resp BP Pulse Ox O2 Del Method O2 Flow Rate 98 F 97 17 125/88 H 97 Room Air 3 06/18/25 07:42 06/18/25 07:42 06/18/25 07:42 06/18/25 07:42 06/18/25 07:42 06/18/25 07:42 06/17/25 16:00 Her vital signs are normal Routine Abdominal Exam Comments: Abdominal examination is negative bowel sounds are heard. Patient is passing flatus Results Results: Laboratory Laboratory Narrative: Laboratory results show normal WBC and normal hemoglobin her potassium is up to 3.5 Assessment & Plan Assessment Additional comments: Impression: Persistent abdominal pain and nausea Inability to eat even liquid diet Plan Plan: Patient's symptoms are completely in explainable. I do not know why she is having pain after eating even liquids. We shall repeat abdominal series once again to see if there is ileus. We will encourage her for ambulation and hopefully discharging her soon PROCEDURES: Procedures Laparoscopic appendectomy
[2025-06-18 11:50] VITALS: BP 129/90; PULSE 108; RESP 17; TEMP 36.7; O2SAT 97
[2025-06-18 13:11] LABS: Albumin, Serum 4.1 gm/dL (3.5-5.0); Anion Gap 10 (7-16); BUN/Creatinine Ratio 7 Ratio (12-20); Blood Urea Nitrogen < 5 mg/dL (9-23); Calcium 8.3 mg/dL (8.3-10.6); Calcium (Corrected) 8.3 mg/dL (8.5-10.1); Carbon Dioxide 25.7 mMol/L (20.0-31.0); Chloride 108 mMol/L (98-107); Creatinine (Component) 0.7 mg/dL (0.6-1.3); Estimated Creatinine Clearance 109.3 mL/min (>60); Glucose 75 mg/dL (74-106); Osmolality,Calculated 283 (275-295); Phosphorous 2.1 mg/dL (2.4-5.1); Potassium 3.4 mMol/L (3.4-5.1); Sodium 144 mMol/L (136-145); eGFR > 60 See Note
[2025-06-18 16:00] VITALS: BP 140/92; PULSE 100; RESP 17; TEMP 36.7; O2SAT 97
[2025-06-18 20:00] VITALS: BP 122/72; PULSE 96; RESP 17; TEMP 37.1; O2SAT 99
--- NOTE | 2025-06-18 20:08 | PC.NURSE ---
pt refused 2100 dose of levetiracetam. Pt said she will vomit if she takes PO medications. Pt. educated and still refused.
--- NOTE | 2025-06-18 21:12 | PC.NURSE ---
Pt refused 2200 dose of gabapentin. Pt educated, but refused due to wanting to vomit.
[2025-06-19] VITALS: BP 110/74; PULSE 94; RESP 16; TEMP 36.4; O2SAT 97
[2025-06-19 04:00] VITALS: BP 117/80; PULSE 103; RESP 18; TEMP 36.1; O2SAT 97
[2025-06-19] MEDS: PIPER/TAZO 3.375 GM PREMIX 3.375 GM/50 ML BAG IV (05:46)
[2025-06-19] MEDS: GABAPENTIN 100 MG CAPSULE 200 MG PO (05:49)
--- NOTE | 2025-06-19 05:51 | PC.NURSE ---
Pt refused 0600 dose of synthroid and baclofen. Pt educated, but patient refused because patient stated it will cause her stomach upset.
[2025-06-19 08:00] VITALS: BP 131/79; PULSE 101; RESP 18; TEMP 36.3; O2SAT 97
--- NOTE | 2025-06-19 09:54 | ESPR_ITS ---
<Statement entered by Sun Watkins MD - 06/20/25 14:34> I reviewed above note and agree with findings and plans. I have also personally examined the patient with medicine team and went over assessment and plan with medical team including internal grinder tender and resident physician. <Statement entered by Pieter Brown MD - 06/19/25 12:30> Patient was examined and case was reviewed with team including attending physician. Note reviewed, I agree with most of its contents and agree with the patient's care as documented by Dr. Dagoberto Brown MD PGY-2 Documentation for date of: 06/19/25 Subjective Subjective Interval history: Reason for consult: Pain Management This is a 44-year-old female with a history of fibromyalgia, seizure disorder, migraines, anxiety, and hypothyroidism, who presented to the ED on 06/15/25 with acute right-sided abdominal pain that became progressively severe over 24 hours. She was found to have acute appendicitis on CT imaging and underwent laparoscopic appendectomy on 06/16/25. Operative course was notable for a retrocecal appendix with intraoperative rupture during difficult dissection, without gross contamination. She tolerated the procedure and was transferred to PACU in stable condition.Postoperatively, the patient initially appeared stable but later developed sudden onset severe abdominal pain, described by family as extreme and out of proportion to prior experiences. Pain was associated with crying, inability to lie flat, positioning, and significant anxiety. Morphine provided minimal relief, and Toradol was ineffective. No vomiting, chest pain, dyspnea, or urinary symptoms were reported. Per discussion with her father (present at bedside), this level of pain is new and not typical for her. She does not use opioid medications at baseline. He reports she has been off several of her home medications for approximately two days, which may be contributing to symptom exacerbation. Father was unable to provide a complete medication list at bedside, noting that medications are frequently adjusted by multiple specialists ([facility], [place], [place]). Bedside abdominal and chest X-ray obtained due to concern for acute change was unremarkable. Laboratory evaluation did not reveal evidence of acute postoperative complication. 06/17/25: She reports that her abdominal pain is unchanged compared to preoperative pain, describing it as severe and persistent. She states pain did improve with morphine overnight as well as ativan. But this morning stated it happened again the pain. She had vomiting earlier this morning after eating, without hematemesis. Symptoms have since improved, and she is currently tolerating oral intake better. Denies chest pain, shortness of breath, fevers, or chills. Endorses anxiety as well. 06/18/25: She continues to report persistent severe abdominal pain, unchanged in character and similar to her preoperative pain. She had recurrent episodes of vomiting this morning, with limited relief from ondansetron alone. She received additional morphine 2 mg IV this morning with partial relief. Continues to endorse anxiety but denies chest pain, shortness of breath, fevers, or chills. 06/19/25: NAOE. D/C Baclofen and Gabapentin as these medications don't seem to be helping with patient's pain. Patient stated her pain is now a 3/10, but still endorse n/v that is worse with food intake. KUB unremarkable. Will try IV tylenol 1g today for pain control and encourage OOB. Exam Vital Signs Temp Pulse Resp BP Pulse Ox O2 Del Method O2 Flow Rate 97.3 F 101 H 18 131/79 H 97 Room Air 3 06/19/25 08:00 06/19/25 08:00 06/19/25 08:00 06/19/25 08:00 06/19/25 08:00 06/19/25 08:00 06/17/25 16:00 Narrative Exam General: Alert, oriented, in no acute distress. 3/10 pain. HEENT: Normocephalic, atraumatic. Neck: Supple, no JVD, no lymphadenopathy or thyroid enlargement. Cardiovascular: Regular rate and rhythm. No murmurs, rubs, or gallops. Respiratory: Clear to auscultation bilaterally. No wheezes, rales, or rhonchi. Normal respiratory effort. Abdomen: Soft, nontender, nondistended. Musculoskeletal: Full range of motion in all extremities. Mild LE swelling. Psychiatric: Calm, cooperative, appropriate mood and affect. Objective Labs 06/18/25 04:25 06/18/25 12:32 Labs: Laboratory Results - last 24 hr 06/18/25 06/18/25 04:25 12:32 Sodium Cancelled 144 Potassium Cancelled 3.4 Chloride Cancelled 108 H Carbon Dioxide Cancelled 25.7 Anion Gap Cancelled 10 BUN Cancelled < 5 L Creatinine Cancelled 0.7 Estim Creat Clear Calc Cancelled 109.3 eGFR Cancelled > 60 BUN/Creatinine Ratio Cancelled 7 L Glucose Cancelled 75 D Calculated Osmolality Cancelled 283 Calcium Cancelled 8.3 D Corrected Calcium Cancelled 8.3 L D Phosphorus Cancelled 2.1 L Albumin Cancelled 4.1 D Quality Measures Quality Measures VTE prophylaxis Assessment & Plan Assessment Current Active Medications: Generic Name Dose Route Start Last Admin Trade Name Freq PRN Reason Stop Dose Admin Acetaminophen 650 mg 06/16/25 11:13 Acetaminophen 325 Mg Tablet PO 07/16/25 11:12 Q6HR PRN [id number] Amitriptyline HCl 100 mg 06/17/25 09:00 06/18/25 10:15 Amitriptyline Hcl 25 Mg Tablet PO 07/17/25 08:59 Not Given DAILY THADDEUS Baclofen 10 mg 06/16/25 18:45 06/19/25 05:49 Baclofen 10 Mg Tablet PO 07/16/25 18:44 Not Given Q12H THADDEUS Levetiracetam Er 750 0 ea 06/18/25 09:00 06/18/25 20:06 Mg PO 07/18/25 08:59 Not Given BID THADDEUS Gabapentin 200 mg 06/17/25 09:30 06/19/25 05:49 Gabapentin 100 Mg Capsule PO 07/17/25 09:29 200 mg TID THADDEUS Administration Hydroxyzine HCl 25 mg 06/16/25 18:32 06/17/25 08:36 Hydroxyzine Hcl 25 Mg Tablet PO 07/16/25 20:59 25 mg QID PRN Administration AGITATION Piperacillin/Tazobactam/Dextrose 3.375 gm in 50 mls @ 100 mls/hr 06/16/25 11:13 06/19/25 05:46 Zosyn IV 06/23/25 11:12 100 mls/hr Q8HR THADDEUS Administration Protocol Sodium Chloride 1,000 mls @ 50 mls/hr 06/17/25 20:00 06/18/25 17:48 Ns IV 07/17/25 19:59 50 mls/hr Q10H THADDEUS Administration Ketorolac Tromethamine 30 mg 06/16/25 16:42 06/18/25 17:47 Ketorolac Inj 30 Mg/Ml Vial IVP 06/21/25 16:41 30 mg Q6HR PRN Administration PAIN SCALE 4-6 (Moderate Levothyroxine Sodium 75 mcg 06/17/25 06:00 06/19/25 05:49 Levothyroxine Sodium 25 Mcg Tablet PO 07/17/25 05:59 [facility] Ondans[facility] HCl 4 mg 06/16/25 03:52 06/18/25 17:47 Ondansetron Inj 2 Mg/Ml Inj 2 Ml IVP 07/16/25 03:51 4 mg Q4H PRN Administration NAUSEA OR VOMITING Protocol Pantoprazole Sodium 40 mg 06/17/25 18:45 06/18/25 08:28 Pantoprazole Inj 40 Mg Vial IVP 07/17/25 18:44 40 mg QDAY THADDEUS Administration Plan 44-year-old female POD#2 s/p laparoscopic appendectomy for acute retrocecal appendicitis with intraoperative rupture, with history of fibromyalgia, migraines, seizure disorder, anxiety, and hypothyroidism, now with ongoing postoperative abdominal pain identical to preoperative pain and recurrent nausea/vomiting, without objective evidence of acute surgical complication. # Acute Postoperative Abdominal Pain # POD#3 s/p laparoscopic appendectomy Severe pain unchanged from preoperative baseline, partially opioid-responsive, without peritoneal signs or concerning objective findings. Plan: * Continue multimodal pain control * Morphine IV PRN for severe pain * Ketorolac PRN if renal function remains stable * Serial abdominal exams # Fibromyalgia with Central Pain Sensitization # Suspected Neuropathic # Phantom Pain Syndrome? Pain quality and patient description (identical to preoperative pain despite removal of appendix) raise concern for neuropathic or phantom-type pain, particularly in the setting of fibromyalgia and central pain sensitization. Plan: * D/C gabapentin to 300 mg TID as patient stated pain medications do not work for her * Continue amitriptyline 100mg QD * Monitor response closely over next 24?48 hours * Avoid unnecessary benzodiazepines for pain control * Continue to set expectations regarding pain trajectory # Nausea and Vomiting Recurrent vomiting this morning with inadequate response to ondansetron alone. Plan: * metoclopramide (Reglan) x 1 (06/18/25) * Continue ondansetron PRN * Advance diet as tolerated * Monitor for ileus or recurrent emesis # Anxiety Contributing to Pain Response Significant anxiety observed during pain episodes, likely worsening pain perception. Plan: * Avoid Ativan at this time, as it is unlikely to address pain mechanism * Reassurance and calming environment * Avoid excessive stimulation overnight # Seizure Disorder History of epilepsy with recent interruption of home medications per family. Plan: * Continue levetiracetam 500 mg BID * Maintain seizure precautions # Hypothyroidism On levothyroxine with recent dose adjustment; TSH low-normal. T4 within normal Plan: * Continue levothyroxine 75 mcg daily * No acute intervention needed tonight Health Maintenance Disposition: Inpatient surgical floor Diet: Advance as tolerated VTE Prophylaxis: Per surgery protocol GI Prophylaxis: Not indicated Code Status: Full code Case discussed with my senior resident Dr. Dao Case discussed with my attending Dr. June Arenas, DO PGY 1
[2025-06-19] MEDS: ACETAMINOPHEN IVPB 1,000 MG/100 ML VIAL 250 MG IV (10:30)
[2025-06-19] MEDS: AMITRIPTYLINE HCL 25 MG TABLET 100 MG PO (10:31)
--- NOTE | 2025-06-19 10:55 | ESPR_ITS ---
Documentation for date of: 06/19/25 Subjective Subjective Brief History: History of present illness revealed that the patient was in her usual health until 3:00 yesterday morning when she had some pain in the abdomen. She vomited many times. Had a bowel movement. No diarrhea. The pain in the abdomen was very severe especially after lunch and she could not eat. She came to the emergency room and was found to have acute appendicitis. Her past medical his tory is very complicated and she has numerous medical problems. She has a constant migraine and then history of seizures and fibromyalgia and she is being evaluated in [facility] for some neurological disorder. Patient also is losing the balance and is walking with a cane because of the frequent falls that happen spontaneously. He also has memory loss intermittently. Past surgery consist of laparoscopic cholecystectomy and some shoulder surgery. She is on numerous medications that is not listed here Narrative: Patient is feeling better slightly even though she is not able to eat much. She gets pain after eating but her oral intake is increased according to the nurse today. She has had liquid bowel movements Exam Vital Signs Temp Pulse Resp BP Pulse Ox O2 Del Method O2 Flow Rate 97.3 F 101 H 18 131/79 H 97 Room Air 3 06/19/25 08:00 06/19/25 08:00 06/19/25 08:00 06/19/25 08:00 06/19/25 08:00 06/19/25 08:00 06/17/25 16:00 Her vital signs are normal even though her pulse rate is slightly up Routine Abdominal Exam Comments: Abdominal examination is unremarkable Assessment & Plan Assessment Additional comments: Pressure: Patient has made reasonably good recovery after appendectomy Plan Plan: We shall discharge her and advised her to continue her medications. She will be seen for follow-up on June 24 PROCEDURES: Procedures Laparoscopic appendectomy
[2025-06-19 12:00] VITALS: BP 131/86; PULSE 104; RESP 18; TEMP 36.3; O2SAT 95
--- NOTE | 2025-06-19 18:11 | ESDS_ITS ---
RE: AMANDEEP JOHNSON : 1980 DATE OF ADMISSION: 06/17/2025 DATE OF DISCHARGE: 06/19/2025 13:22 FINAL DIAGNOSES: Appendicitis with perforation. PROCEDURES DONE: Laparoscopic appendectomy and intravenous antibiotics and consultation for Internal Medicine to manage her pain and anxiety. REASON FOR ADMISSION: This patient is a 44-year-old white female who was admitted on with abdominal pain of 1-day duration associated with vomiting. The patient was found to have multiple medical problems including seizure disorder, fibromyalgia, chronic migraine, and imbalance of the gait. She also has had memory loss intermittently. She was found to have acute appendicitis that was located behind the cecum. At the time of admission, her WBC was around 20,000 with shift to the left. CT scan confirmed appendicitis. HOSPITAL COURSE: The patient was taken to the operating room on , , 06/16/2025. She underwent rather difficult laparoscopic appendectomy and in the process of removing the appendix broke, but there was no major contamination. The patient was therefore treated with IV antibiotics consisting of Zosyn for a few days. The patient's postoperative course was complicated by sudden episodes of abdominal pain with severe intensity requiring immediate attention a couple of times. The patient was tried with various medications including morphine, Toradol, and hydromorphone. Her pain did not improve and she required Ativan to calm her down. X-rays were done postoperatively to look for any abnormality in the abdomen and it was negative. She kept having pain after eating and therefore she was kept in the hospital even though her laboratory results are normal. The patient was gradually allowed to resume her medications as suggested by the hospitalist. We felt that her reaction postoperatively to this pain is probably related to her underlying neurological disorder. She is therefore discharged on 06/19 and was advised to follow up with me next Friday. The patient was not given any new prescription and was advised to take care of her old prescription medications. DT: 11:07:05 TT: 18:10:00 Ref: [id number] - TID: [id number]
== END 2025-06-19 13:22 | disposition home or self-care (01) | DRG 233 ==
LOC: SERX 04:15 → SERHOLD 04:34 → S3NX 07:21 → SERHOLD 06-21 13:26
PROVIDERS: Internal Medicine; Student in an Organized Health Care Education/Training Program; Admitting Provider Surgery; Emergency Provider Emergency Medicine; PCP Family Medicine; Visit Provider Student in an Organized Health Care Education/Training Program
PROC: 0DTJ4ZZ Resection of Appendix, Percutaneous Endoscopic Approach (ICD-10-PCS; CPT 44970; principal; 2025-06-16 08:00)
DX: K35.32 Acute appendicitis with perforation, localized peritonitis, and gangrene, without abscess (principal); M79.7 Fibromyalgia; F41.9 Anxiety disorder, unspecified; G40.909 Epilepsy, unspecified, not intractable, without status epilepticus; I10 Essential (primary) hypertension; E03.9 Hypothyroidism, unspecified; G43.909 Migraine, unspecified, not intractable, without status migrainosus; J45.909 Unspecified asthma, uncomplicated; Z79.82 Long term (current) use of aspirin; Z79.890 Hormone replacement therapy; Z79.899 Other long term (current) drug therapy; Z88.2 Allergy status to sulfonamides; Z88.8 Allergy status to other drugs, medicaments and biological substances; R29.6 Repeated falls; R41.3 Other amnesia
CPT/HCPCS: 36415; 74019; 74022; 74177; 76705; 80051; 80053; 80069; 81001; 82150; 82248; 83036; 83605; 83690; 83735; 84145; 84439; 84443; 84703; 85014; 85018; 85025; 85652; 86140; 87040; 96361; 96374; 96375; 99284; A4217; A4649; C1713; G0378; J0131; J0696; J1171; J1805; J1885; J2060; J2250; J2270; J2405; J2470; J2543; J2704; J2765; J3010; J3490; J7030; J7120; Q9967; A9270; J1836